=== PATIENT | female | born 1940 | race Caucasian/White ===

== ENCOUNTER 2019-06-12 09:00 | Inpatient (IN) | payer MEDICARE, OTHER ==
[2019-07-25] MEDS ORDERED: Buffered Lidocaine 1% SYRIN* 1 ML/SYRINGE INTRADERM ONE (12:14)
[2019-07-26] MEDS ORDERED: Gabapentin CAP(*) 300 MG PO ONE (06:00)
[2019-07-26] MEDS ORDERED: Acetaminophen IV 1GM/100ML * 1,000 MG/100 ML VIAL IVPB ONE (06:00)
[2019-07-26] MEDS ORDERED: Dexamethasone TAB* 4 MG PO ONE (06:00)
[2019-07-26] MEDS ORDERED: Lactated Ringers 1000 ML Bag* 1,000 ML IV SCH (06:00)
[2019-07-26] MEDS ORDERED: celeCOXIB CAP* 200 MG PO ONE (06:00)
[2019-07-26] MEDS ORDERED: Famotidine IV* 10 MG/ML 2 ML (20 mg) IV ONE (06:00)
--- OUTSIDE RECORDS SUMMARY | 2019-07-26 13:11 | XMS REPORT | Continuity of Care Document ---
:1940 External Reference #:[id number] Author Name Caridad Resendiz M.D. (transmitted by agent of provider Sara Valverde) Address [address] [place] [address] Care Team Providers Name Role Phone Archie Argueta III, MD - Internal Care Team Information Social Economist Medicine Victoriano Zhu MD - Surgery Care Team Information Social Economist [phone] [facility] - Sleep Disorder Care Team Information Social Economist Diagnostic Problems Active Problems Provider Date Benign essential hypertension Archie Argueta M.D. Onset: 03/01/2011 Impaired fasting glycaemia Archie Argueta M.D. Onset: 03/01/2011 History of malignant neoplasm of thyroid Archie Argueta M.D. Onset: 2010 Sleep disorder Nurse Visits - DR Argueta Onset: 03/01/2011 Mixed hyperlipidemia Archie Argueta M.D. Onset: 03/01/2011 Sleep apnea Archie Argueta M.D. Onset: 07/29/2011 Chest pain Archie Argueta M.D. Onset: 01/28/2012 Disorder of lipid metabolism Archie Argueta M.D. Onset: 12/26/2012 Type 2 diabetes mellitus Archie Argueta M.D. Onset: 07/10/2019 Localized, primary osteoarthritis Caridad Resendiz M.D. Onset: 09/14/2017 Pure hyperglyceridemia Archie Argueta M.D. Onset: 12/25/2015 Essential hypertension Archie Argueta M.D. Onset: 12/25/2015 Social History Type Date Description Comments Sex Unknown Tobacco Use Start: Unknown End: denies cigarette use Unknown ETOH Use Occasionally consumes alcohol Tobacco Use Start: Unknown End: Patient is a former Unknown smoker Tobacco Use Start: Unknown Started at 16 quit at 27, < 1/2 pk per day Smoking Status Reviewed: 07/16/19 Started at 16 quit at 27, < 1/2 pk per day Exercise Exercises regularly; less exercise lately Type/Frequency active around the house. with knee pain sx Allergies, Adverse Reactions, Alerts Description No Known Drug Allergies Medications Active Medications SIG Qnty Indications Ordering Date Provider Levothyroxine Sodium 1 by mouth every 90units Archie Zhu 12/15/2017 day Frances Argueta 100mcg Solution Rec Bystolic take 1 tablet by 180tabs I10 Archie Zhu 02/14/2013 20mg Tablets mouth once daily Frances Argueta Valsartan-Hydrochloro take 1 tablet by 90tabs Archie Zhu 11/21/2012 thiazide mouth once daily Frances Argueta 160-25mg Tablets Amlodipine Besylate take 1 tablet by 90tabs Archie Zhu 03/17/2012 mouth once daily Frances Argueta 10mg Tablets Potassium 2 tabs a day Unknown 99mg Tablets Centrum Silver 1 by mouth every Unknown Tablets day Triamcinolone Unknown Acetonide Meloxicam Unknown Ibuprofen as needed Unknown Aspirin as needed Unknown Tacrolimus use on effective Unknown 0.03% area 2x daily as Ointment needed Clobetasol Propionate Unknown 0.05% Ointment Medications Administered in Office Medication SIG Qnty Indications Ordering Provider Date Shingrix no bill inj-pt brought in Unknown 12/02/2018 Injection Shingrix no bill inj-pt brought in Unknown 09/15/2018 Injection Depomedrol 40MG Caridad Resendiz M.D. 09/14/2017 Injection Immunizations CPT Code Status Date Vaccine Reaction Lot # [id number] Given 03/02/2019 Tdap - shot tolerated well, [id number] Tetanus/Diptheria/Acellular no immediate reaction Pertussis 31476 Given 08/01/2018 Fluzone High Dose 17619 Given 07/05/2017 Influenza Virus Vaccine, Quadrivalent, Split, Preservative Free 53308 Given 10/06/2016 Fluzone High Dose 44166 Given 09/02/2015 Influenza Virus Vaccine, [id number] Quadrivalent, Split, Preservative Free 45119 Given 12/23/2014 Pneumococcal Conjugate [id number] Vaccine 13 Valent For Intramuscular Use 01373 Given 08/30/2014 Flu Vaccine Split Virus [id number] Preservative Free For Indiv 3Yr Older 46481 Given 10/09/2013 Flu Vaccine Split Virus [id number] Preservative Free For Indiv 3Yr Older Q2037 Given 07/29/2012 Fluvirin Im 3Yrs And Older [id number] Q2038 Given 09/09/2011 Fluzone Vaccine [id number] 71279 Given 08/28/2010 Influenza Virus 3Yrs & Over [id number] 08786 Given 10/03/2009 Influenza Virus Vaccine, [id number] 6P Pandemic Formulation 16841 Given 10/03/2009 Administration Swine Flu Shot 79750 Given 01/06/2009 Tetanus And Diptheria (Td) For Adult Use Preservative Free 81062 Given 11/21/2008 Zoster (Zostavax) 53038 Given 08/05/2008 Influenza Virus 3Yrs & Over 14644 Given 08/28/2007 Influenza Virus 3Yrs & Over 53442 02065 Given 06/29/2005 Pneumovax (History By Patient) 09665 Given 11/25/1998 Td (History By Patient) Vital Signs Date Vital Result Comment 07/16/2019 11:19am Height 67 inches 5'7" Weight 230.00 lb Heart Rate 60 /min BP Systolic 132 mmHg BP Diastolic 84 mmHg Respiratory Rate 18 /min Body Temperature 97.7 F Pain Level 0 BMI (Body Mass Index) 36.0 kg/m2 07/10/2019 4:01pm Height 67 inches 5'7" Weight 232.00 lb Heart Rate 59 /min BP Systolic Sitting 150 mmHg BP Diastolic Sitting 83 mmHg BMI (Body Mass Index) 36.3 kg/m2 Results Test Date Facility Test Result H/L Range Note Comp Metabolic 07/11/2019 [facility] Sodium 140 mmol/L Normal 135-[address] [place] [address] [phone] Potassium 3.6 mmol/L Normal 3.5-5.0 Chloride 101 mmol/L Normal 101-111 Co2 Carbon Dioxide 31 mmol/L Normal 22-32 Anion Gap 8 mmol/L Normal 2-11 Glucose 151 mg/dL High 70-100 Blood Urea Nitrogen 18 mg/dL Normal 6-24 Creatinine 0.70 mg/dL Normal 0.51-0.95 BUN/Creatinine Ratio 25.7 High 8-20 Calcium 8.9 mg/dL Normal 8.6-10.3 Total Protein 6.9 g/dL Normal 6.4-8.9 Albumin 4.2 g/dL Normal 3.2-5.2 Globulin 2.7 g/dL Normal 2-4 Albumin/Globulin Ratio 1.6 Normal 1-3 Total Bilirubin 0.50 mg/dL Normal 0.2-1.0 Alkaline Phosphatase 56 U/L Normal 34-104 Alt 24 U/L Normal 7-52 Ast 20 U/L Normal 13-39 Egfr Non- 80.9 >60 Egfr 97.9 >60 1 Laboratory test 07/11/2019 [facility] Hemoglobin A1c <pending> finding [address] (Glyco HGB) [place] [address] [phone] TSH (Thyroid Stim Horm) 6.69 mcIU/mL High 0.34-5.60 Free T4 (Free Thyroxine) 0.93 ng/dL Normal 0.61-1.12 CBC Auto 07/11/2019 [facility] White Blood 5.4 10^3/uL Normal 3.5-10.[address] [place] [address] [phone] Red Blood Count 4.72 10^6/uL Normal 3.70-4.87 Hemoglobin 14.4 g/dL Normal 12.0-16.0 Hematocrit 41 % Normal 35-47 Mean Corpuscular Volume 87 fL Normal 80-97 Mean Corpuscular Hemoglobin 31 pg Normal 27-31 Mean Corpuscular HGB Conc 35 g/dL Normal 31-36 Red Cell Distribution Width 14 % Normal 10-15 Platelet Count 151 10^3/uL Normal 150-450 Mean Platelet Volume 9.7 fL Normal 7.4-10.4 Abs Neutrophils 3.7 10^3/uL Normal 1.5-7.7 Abs Lymphocytes 1.0 10^3/uL Normal 1.0-4.8 Abs Monocytes 0.5 10^3/uL Normal 0-0.8 Abs Eosinophils 0.2 10^3/uL Normal 0-0.6 Abs Basophils 0.0 10^3/uL Normal 0-0.2 Abs Nucleated RBC 0.0 10^3/uL Granulocyte % 69.0 % Lymphocyte % 17.7 % Monocyte % 9.8 % Eosinophil % 3.1 % Basophil % 0.4 % Nucleated Red Blood Cells % 0.2 Urinalysis Profile 07/11/2019 [facility] Urine Color Yellow [address] [place] [address] [phone] Urine Appearance Clear Urine Specific [employer] 1.021 Normal 1.010-1.030 Urine pH 6.0 Normal 5-9 Urine Urobilinogen Negative Negative Urine Ketones Negative Negative Urine Protein Negative Negative Urine Leukocytes 2+ Abnormal Negative Urine Blood Negative Negative Urine Nitrite Negative Negative Urine Bilirubin Negative Negative Urine Glucose Negative Negative Urine White Blood Cell Absent Absent Urine Red Blood Cell Absent Absent Urine Bacteria Absent Absent Urine Culture And 07/11/2019 [facility] Urine Culture SEE RESULT [address] [place] [address] [phone] Urine Microalbumin 03/02/2019 [facility] Ur Microalbumin 85.4 mg /L [address] (mg/L) [place] [address] [phone] Urine Creatinine 99.78 mg/dL Urine Microalbumin/Creatinine 85.5 High <31 Comp Metabolic 02/22/2019 [facility] Sodium 141 mmol/L Normal 135-[address] [place] [address] [phone] Potassium 4.0 mmol/L Normal 3.5-5.0 Chloride 100 mmol/L Low 101-111 Co2 Carbon Dioxide 32 mmol/L Normal 22-32 Anion Gap 9 mmol/L Normal 2-11 Glucose 139 mg/dL High 70-100 Blood Urea Nitrogen 11 mg/dL Normal 6-24 Creatinine 0.68 mg/dL Normal 0.51-0.95 BUN/Creatinine Ratio 16.2 Normal 8-20 Calcium 9.4 mg/dL Normal 8.6-10.3 Total Protein 7.2 g/dL Normal 6.4-8.9 Albumin 4.4 g/dL Normal 3.2-5.2 Globulin 2.8 g/dL Normal 2-4 Albumin/Globulin Ratio 1.6 Normal 1-3 Total Bilirubin 0.50 mg/dL Normal 0.2-1.0 Alkaline Phosphatase 64 U/L Normal 34-104 Alt 24 U/L Normal 7-52 Ast 23 U/L Normal 13-39 Egfr Non- 83.7 >60 Egfr 101.3 >60 4 Lipid Profile 02/22/2019 [facility] Triglycerides 257 mg/dL 5 (Trig/Chol/HDL) [address] [place] [address] [phone] Cholesterol 155 mg/dL 6 HDL Cholesterol 45.7 mg/dL 7 LDL Cholesterol 58 mg/dL 8 Laboratory test 02/22/2019 [facility] Hemoglobin A1c 6.6 % High 4.0-5.[address] (Glyco HGB) [place] [address] [phone] TSH (Thyroid Stim Horm) 5.50 mcIU/mL Normal 0.34-5.60 10 Free T4 (Free Thyroxine) 0.96 ng/dL Normal 0.61-1.12 11 1 Because ethnic data is not always readily available, this report includes an eGFR for both -Americans and non- Americans. The National Kidney Disease Education Program (NKDEP) does not endorse the use of the MDRD equation for patients that are not between the ages of 18 and 70, are , have extremes of body size, muscle mass, or nutritional status, or are non- or non-. According to the National Kidney Foundation, irrespective of diagnosis, the stage of the disease is based on the level of kidney function: Stage Description GFR(mL/min/1.73 m(2)) 1 Kidney damage with normal or decreased GFR 90 2 Kidney damage with mild decrease in GFR 60-89 3 Moderate decrease in GFR 30-59 4 Severe decrease in GFR 15-29 5 Kidney failure <15 (or dialysis) 2 SEE RESULT BELOW Name: ISAIAS BRODERICK : [address]: Archie Argueta III, MD Acct: [id number] Unit: [id number] AGE: 78 Location: [facility] Re07/11/19 SEX: F Status: REG REF SPEC: [id number] MERRY: 07/11/[address]: Archie Argueta III, MD REQ: [id number] RECD: 07/11/19 STATUS: COMP _ [facility]: Urine Culture Procedure Result Reported Site Urine Culture Final 07/12/19- 1329 ML Organism 1 STREP GROUP B Baxter Count 50-75,000 (Many) CFU/ML Susceptibility testing of penicillins and other B-lactams approved by FDA for treatment of Streptococcus pyogenes (Group A Strep) and Streptococcus agalactiae (Group B Strep) is not necessary for clinical purposes and need not be done routinely, since as with vancomycin, resistant strains have not been recognized. (CLSI E690-M55;p.66) Positive isolates will be saved for one week. Please call the Microbiology Laboratory if further susceptibility testing is needed. * ML - Main Lab . END OF REPORT DEPARTMENT OF PATHOLOGY, [address] [place] [address] Ayad Kat M.D. Director [facility] # [id number] 3 [id number] 4 Because ethnic data is not always readily available, this report includes an eGFR for both -Americans and non- Americans. The National Kidney Disease Education Program (NKDEP) does not endorse the use of the MDRD equation for patients that are not between the ages of 18 and 70, are , have extremes of body size, muscle mass, or nutritional status, or are non- or non-. According to the National Kidney Foundation, irrespective of diagnosis, the stage of the disease is based on the level of kidney function: Stage Description GFR(mL/min/1.73 m(2)) 1 Kidney damage with normal or decreased GFR 90 2 Kidney damage with mild decrease in GFR 60-89 3 Moderate decrease in GFR 30-59 4 Severe decrease in GFR 15-29 5 Kidney failure <15 (or dialysis) 5 Desirable: <150 Borderline High: 150-199 High: 200-499 Very High: >500 6 Desirable: <200 Borderline High: 200-239 High: >239 7 Low: <40 Desirable: 40-60 High: >60 8 Desirable: <100 Near Optimal: 100-129 Borderline High: 130-159 High: 160-189 Very High: >189 9 Therapeutic target for the treatment of diabetes mellitus patients is <7% HBA1C, and in selective patients <6.0%. Please refer to [place] [employer] diabetic care guidelines for further information. 10 FASTING 11 FASTING Procedures Date Code Description Status 07/10/2019 97253 EKG Tracing & Interpretation Completed 04/17/2019 87309 Polysomnography Sleep Staging 4+ Parameters W/Cpap Completed 04/17/2019 995108399 Diabetic Retinal Eye Exam Completed 04/02/2019 [id number] Diabetic Foot Exam Completed 09/30/2017 [id number] Mammogram Completed 09/29/2016 [id number] Mammogram Completed 09/22/2015 [id number] Mammogram Completed 09/20/2014 [id number] Mammogram Completed 09/08/2012 [id number] Mammogram Completed 04/11/2012 [id number] Colonoscopy Completed 09/03/2010 [id number] Bone Mineral Density Test Completed 09/03/2010 [id number] Mammogram Completed 08/22/2009 [id number] Mammogram Completed 02/21/2007 [id number] Colonoscopy Completed Medical Devices Description No Information Available Encounters Type Date Location Provider Dx Diagnosis Office Visit 05/30/2019 Orthopedic Caridad Resendiz, M25.562 Pain in left knee 9:00a [facility] Daniels M25.462 Effusion, left knee M17.12 Unilateral primary osteoarthritis, left knee R21 Rash and other nonspecific skin eruption Office Visit 05/02/2019 [facility]ology And Neyda G47.33 Obstructive sleep 11:30a [facility] Barraza apnea (adult) Francie (pediatric) G47.61 Periodic limb movement disorder Z01.818 Encounter for other preprocedural examination Office Visit 03/30/2019 2:00p Orthopedic Services Caridad Resendiz, M25.562 Pain in left Of Deborah Daniels knee M25.462 Effusion, left knee M17.12 Unilateral primary osteoarthritis, left knee Office Visit 03/15/2019 7:00a [facility]ology [facility] Rupal G47.33 Obstructive sleep [facility] Marcelino apnea (adult) Optometric Technologist (pediatric) R53.83 Other fatigue Office Visit 03/02/2019 9:20a [facility] Internal Archie Zhu Z00.00 Encntr for Medicine - Evgeny Argueta M.D. general adult medical exam w/o abnormal findings I10 Essential (primary) hypertension E78.1 Pure hyperglyceridemia G47.30 Sleep apnea, unspecified Z85.850 Personal history of malignant neoplasm of thyroid E11.9 Type 2 diabetes mellitus without complications Z23 Encounter for immunization Assessments Date Code Description Provider 07/16/2019 M17.12 Unilateral primary osteoarthritis, left Caridad Resendiz M.D. knee 07/16/2019 M25.562 Pain in left knee Caridad Resendiz M.D. 07/16/2019 M25.462 Effusion, left knee Caridad Resendiz M.D. 07/10/2019 Z01.810 Encounter for preprocedural cardiovascular Archie Argueta M.D. examination 07/10/2019 M17.12 Unilateral primary osteoarthritis, left Archie Argueta M.D. knee 07/10/2019 I10 Essential (primary) hypertension Archie Argueta M.D. 07/10/2019 E11.9 Type 2 diabetes mellitus without Archie Argueta M.D. complications 07/10/2019 G47.30 Sleep apnea, unspecified Archie Argueta M.D. 07/10/2019 E78.1 Pure hyperglyceridemia Archie Argueta M.D. 07/10/2019 Z85.850 Personal history of malignant neoplasm of Archie Argueta M.D. thyroid 05/30/2019 M25.562 Pain in left knee Caridad Resendiz M.D. 05/30/2019 M25.462 Effusion, left knee Caridad Resendiz M.D. 05/30/2019 M17.12 Unilateral primary osteoarthritis, left Caridad Resendiz M.D. knee 05/30/2019 R21 Rash and other nonspecific skin eruption Caridad Resendiz M.D. 05/02/2019 G47.33 Obstructive sleep apnea (adult) (pediatric) Neyda Barraza NP 05/02/2019 G47.61 Periodic limb movement disorder Neyda Barraza NP 05/02/2019 Z01.818 Encounter for other preprocedural Neyda Barraza NP examination 04/17/2019 G47.33 Obstructive sleep apnea (adult) (pediatric) Rupal Benson MD 03/30/2019 M25.562 Pain in left knee Caridad Resendiz M.D. 03/30/2019 M25.462 Effusion, left knee Caridad Resendiz M.D. 03/30/2019 M17.12 Unilateral primary osteoarthritis, left Caridad Resendiz M.D. knee 03/15/2019 G47.33 Obstructive sleep apnea (adult) (pediatric) Rupal Benson MD 03/15/2019 R53.83 Other fatigue Rupal Benson MD 03/02/2019 Z00.00 Encounter for general adult medical Archie Argueta M.D. examination without abno 03/02/2019 I10 Essential (primary) hypertension Archie Argueta M.D. 03/02/2019 E78.1 Pure hyperglyceridemia Archie Argueta M.D. 03/02/2019 G47.30 Sleep apnea, unspecified Archie Argueta M.D. 03/02/2019 Z85.850 Personal history of malignant neoplasm of Archie Argueta M.D. thyroid 03/02/2019 E11.9 Type 2 diabetes mellitus without Archie Argueta M.D. complications 03/02/2019 Z23 Encounter for immunization Archie Argueta M.D. Plan of Treatment Future Appointment(s):08/08/2019 9:45 am - Caridad Resendiz M[facility]08/31/2019 9:30 am - Neyda Barraza NP at [facility]07/26/2019 4:30 pm - Caridad Resendiz M.D. at [facility]09/07/2019 10:40 am - Archie Argueta M.D. at [facility] Internal Medicine - [facility]07/16/2019 - Caridad Resendiz M.D.M17.12 Unilateral primary osteoarthritis, left kneeFollow up:Follow up: To the ORM25.562 Pain in left kneeNew Xrays:Knee 3 Views LT, Ordered: 07/16/19M25.462 Effusion, left knee Functional Status Description No Information Available Mental Status Description No Information Available Referrals Refer to Reason for Referral Status Appt Date [facility] Sleep Clinic sleep apnea, on CPAP Sent 03/15/2019 [address] [place] [place] [address] [phone]
--- OUTSIDE RECORDS SUMMARY | 2019-07-26 13:11 | XMS REPORT | Continuity of Care Document ---
:1940 External Reference #:[id number] Author Name Archie Argueta M.D. (transmitted by agent of provider Varsha Sr ) Address [address], [place] [address] Care Team Providers Name Role Phone Archie Argueta III, MD - Internal Care Team Information Supply Chain Manager Medicine Victoriano Zhu MD - Surgery Care Team Information Supply Chain Manager [phone] [facility] [place] [facility] - Sleep Disorder Care Team Information Supply Chain Manager Diagnostic Problems Active Problems Provider Date Benign [...] 1/2 pk per day Smoking Status Reviewed: 07/10/19 Started at 16 quit at 27, < 1/2 pk per day Exercise Exercises regularly; less exercise lately Type/Frequency active around the house. with knee pain sx Allergies, Adverse Reactions, Alerts Description No Known Drug Allergies Medications Active Medications SIG Qnty Indications Ordering Provider Date Levothyroxine Sodium 1 by mouth 90units Archie Argueta, 12/15/2017 every day M.D. 100mcg Solution Rec Bystolic take 1 tablet 180tabs I10 Archie Argueta, 02/14/2013 20mg Tablets by mouth once M.D. daily Valsartan-Hydrochlorot take 1 tablet 90tabs Archie Argueta, 11/21/2012 hiazide by mouth once M.D. 160-25mg Tablets daily Amlodipine Besylate take 1 tablet 90tabs Archie Argueta, 03/17/2012 10mg by mouth once M.D. Tablets daily Potassium 2 tabs a day Unknown 99mg Tablets Centrum Silver 1 by mouth Unknown Tablets every day Triamcinolone Unknown Acetonide Meloxicam Unknown Ibuprofen Unknown Aspirin Unknown Medications Administered in Office Medication SIG Qnty Indications Ordering Provider Date Shingrix no bill inj-pt brought in Unknown 12/02/2018 Injection Shingrix no bill inj-pt brought in Unknown 09/15/2018 Injection Depomedrol 40MG Caridad Resendiz M.D. 09/14/2017 Injection Immunizations CPT Code Status Date Vaccine Reaction Lot # [id number] Given 03/02/2019 Tdap - shot tolerated well, [id number] Tetanus/Diptheria/Acellular no immediate reaction Pertussis 50011 Given 08/01/2018 Fluzone High Dose 50289 Given 07/05/2017 Influenza Virus Vaccine, Quadrivalent, Split, Preservative Free 81485 Given 10/06/2016 Fluzone High Dose 52381 Given 09/02/2015 Influenza Virus Vaccine, [id number] Quadrivalent, Split, Preservative Free 07639 Given 12/23/2014 Pneumococcal Conjugate [id number] Vaccine 13 Valent For Intramuscular Use 52405 Given 08/30/2014 Flu Vaccine Split Virus [id number] Preservative Free For Indiv 3Yr Older 78636 Given 10/09/2013 Flu Vaccine Split Virus [id number] Preservative Free For Indiv 3Yr Older Q2037 Given 07/29/2012 Fluvirin Im 3Yrs And Older [id number] Q2038 Given 09/09/2011 Fluzone Vaccine [id number] 05550 Given 08/28/2010 Influenza Virus 3Yrs & Over [id number] 29921 Given 10/03/2009 Influenza Virus Vaccine, [id number] 6P Pandemic Formulation 63727 Given 10/03/2009 Administration Swine Flu Shot 66510 Given 01/06/2009 Tetanus And Diptheria (Td) For Adult Use Preservative Free 16187 Given 11/21/2008 Zoster (Zostavax) 76243 Given 08/05/2008 Influenza Virus 3Yrs & Over 55416 Given 08/28/2007 Influenza Virus 3Yrs & Over 64460 94465 Given 06/29/2005 Pneumovax (History By Patient) 36337 Given 11/25/1998 Td (History By Patient) Vital Signs Date Vital Result Comment 07/10/2019 4:01pm Height 67 inches 5'7" Weight 232.00 lb Heart Rate 59 /min BP Systolic Sitting 150 mmHg BP Diastolic Sitting 83 mmHg BMI (Body Mass Index) 36.3 kg/m2 05/30/2019 9:24am Height 67 inches 5'7" Weight 229.00 lb Heart Rate 61 /min BP Systolic 135 mmHg BP Diastolic 73 mmHg Body Temperature 97.6 F O2 % BldC Oximetry 94 % BMI (Body Mass Index) 35.9 kg/m2 Results Test Date Facility Test Result H/L Range Note Urine Microalbumin 03/02/2019 [facility] Ur Microalbumin 85.4 mg /L [address] (mg/L) [place] [address] [phone] Urine Creatinine 99.78 mg/dL Urine Microalbumin/Creatinine 85.5 High <31 Comp Metabolic 02/22/2019 [facility] Sodium 141 mmol/L Normal 135-[address] [place] [address] [phone] Potassium 4.0 mmol/L Normal 3.5-5.0 Chloride 100 [...] Egfr Non- 83.7 >60 Egfr 101.3 >60 2 Lipid Profile 02/22/2019 [facility] Triglycerides 257 mg/dL 3 (Trig/Chol/HDL) [address] [place] [address] [phone] Cholesterol 155 mg/dL 4 HDL Cholesterol 45.7 mg/dL 5 LDL Cholesterol 58 mg/dL 6 Laboratory test 02/22/2019 [facility] Hemoglobin A1c 6.6 % High 4.0-5.6 7 finding [address] [facility] (Glyco HGB) [place] [address] [phone] TSH (Thyroid Stim Horm) 5.50 mcIU/mL Normal 0.34-5.60 8 Free T4 (Free Thyroxine) 0.96 ng/dL Normal 0.61-1.12 9 1 [id number] 2 Because ethnic data is not always readily [...] 15-29 5 Kidney failure <15 (or dialysis) 3 Desirable: <150 Borderline High: 150-199 High: 200-499 Very High: >500 4 Desirable: <200 Borderline High: 200-239 High: >239 5 Low: <40 Desirable: 40-60 High: >60 6 Desirable: <100 Near Optimal: 100-129 Borderline High: 130-159 High: 160-189 Very High: >189 7 Therapeutic target for the treatment of diabetes mellitus patients is <7% HBA1C, and in selective patients <6.0%. Please refer to [place] [employer] diabetic care guidelines for further information. 8 FASTING 9 FASTING Procedures Date Code Description Status 04/17/2019 33671 Polysomnography Sleep Staging 4+ Parameters W/Cpap Completed 04/17/2019 [id number] Diabetic Retinal Eye Exam Completed 04/02/2019 [id number] Diabetic Foot Exam Completed 09/30/2017 [id number] Mammogram Completed 09/29/2016 [id number] Mammogram Completed 09/22/2015 [id number] Mammogram Completed 09/20/2014 [id number] Mammogram Completed 09/08/2012 [id number] Mammogram Completed 04/11/2012 [id number] Colonoscopy Completed 09/03/2010 [id number] Bone Mineral Density Test Completed 09/03/2010 [id number] Mammogram Completed 08/22/2009 [id number] Mammogram Completed 02/21/2007 [id number] Colonoscopy Completed Medical Devices Description No Information [...] [facility] apnea (adult) 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 M.D. 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 general adult medical exam w/o abnormal findings I10 Essential (primary) hypertension E78.1 Pure hyperglyceridemia G47.30 Sleep apnea, unspecified Z85.850 Personal history of malignant neoplasm of thyroid E11.9 Type 2 diabetes mellitus without complications Z23 Encounter for immunization Assessments Date Code Description Provider 07/10/2019 Z01.810 Encounter for preprocedural cardiovascular Archie [...] Archie Argueta M.D. Plan of Treatment Future Appointment(s):07/16/2019 11:15 am - Caridad Resendiz M.D. at [facility]07/26/2019 4:30 pm - Caridad Resendiz M.D. at [facility]08/15/2019 9:30 am - Neyda Barraza NP at [facility]09/07/2019 10:40 am - Archie Argueta M.D. at [facility] - [facility]07/10/2019 - Archie Argueta M.D.Z01.810 Encounter for preprocedural cardiovascular examinationNew Orders:EKG, Ordered: Comments:No contraindications to planned knee surgery. Preop labs ordered.M17.12 Unilateral primary osteoarthritis, left kneeComments:L TKA planned per chereJ36 Essential (primary) hypertensionComments:BP up today, but home BPs good. Continue Rx, home BP owzstmK39.9 Type 2 diabetes mellitus without complicationsComments:Diet Rx only; A1c 6.6 in February.G47.30 Sleep apnea, unspecifiedComments:On CPAPE78.1 Pure hyperglyceridemiaComments:Diet Rx only; TG 257 in FebruaryZ85.850 Personal history of malignant neoplasm of thyroidComments: On replacement Rx. TSH higher in February; recheck labs Functional Status Description No Information Available Mental Status Description No Information Available Referrals Refer to Reason for Referral Status Appt Date [facility] [place] [facility] sleep apnea, on CPAP Sent 03/15/2019 [address] [place] [id number] [phone]
--- OUTSIDE RECORDS SUMMARY | 2019-07-26 13:12 | XMS REPORT | Continuity of Care Document ---
:1940 External Reference #:[id number] Author Name Elizabeth Obrien Care Team Providers Name Role Phone Archie Argueta III, MD Primary Care Physician Unavailable Payers Date Identification Numbers Payment Provider Subscriber Effective: 2010 Policy Number: [id number] Medicare Isaias T Meggan PayID: [id number] [address] [place] [address] Effective: 2017 Policy Number: [id number] [facility] Isaias Villarrealleida Group Number: [id number] [address] PayID: [id number] [place] [address] PayID: [id number] Medicare D - Drug Plan Isaias Villarrealleida Advance Directives Type Date Description Status Comment Other Directive 12/30/2017 Health Care Proxy Current and Verified Problems Active Problems Provider Date Benign essential [...] lipid metabolism Archie Argueta M.D. Onset: 12/26/2012 Localized, primary osteoarthritis Caridad Resendiz M.D. Onset: 09/14/2017 Pure hyperglyceridemia Archie Argueta M.D. Onset: 12/25/2015 Essential hypertension Archie Argueta M.D. 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 Tobacco Use Start: Unknown End: denies cigarette use Unknown ETOH Use Occasionally consumes alcohol Tobacco Use Start: Unknown End: Patient is a former Unknown smoker Tobacco Use Start: Unknown Started at 16 quit at 27, < 1/2 pk per day Smoking Status Reviewed: 05/30/19 Started at 16 quit at 27, < [...] 10mg by mouth once M.D. Tablets daily Aspirin Unknown Ibuprofen Unknown Meloxicam Unknown Triamcinolone Unknown Acetonide Centrum Silver 1 by mouth Unknown Tablets every day Potassium 2 tabs a day Unknown 99mg Tablets History Medications Meloxicam take 1 pill a 30tabs Caridad Resendiz, 10/12/2017 - 7.5mg Tablets day by mouth M.D. 02/20/2018 Levothyroxine Sodium 1 by mouth 30tabs Archie Zhu 10/12/2017 - 112mcg every day Frances Argueta 12/15/2017 Tablets Meloxicam 1 by mouth 30tabs M25.562 Caridad Martín, 09/14/2017 - 15mg Tablets every day for M.DAissatou 08/21/2018 two week on and the two weeks off Levothyroxine Sodium 1 by mouth 90tabs Archie Zhu 08/18/2017 - 125mcg every day Frances Argueta 10/12/2017 Tablets Klor-Con M10 1 by mouth 14tabs Archie Zhu 02/16/2017 - 10Meq Tablets ER every day Frances Argueta 08/16/2017 Doxycycline Hyclate take both 2tabs S20.461 Archie Zhu 09/15/2015 - 100mg Tablets tablets Caroline Argueta M.D. 12/25/2015 together x1 Furosemide take 1 tablet 10tabs 782.3 Archie Zhu 03/20/2014 - 20mg Tablets by mouth every Frances Argueta 06/20/2014 morning Bystolic 1 po qd 30tabs 401.1 Archie Zhu 01/23/2013 - 10mg Tablets Frances Argueta 02/14/2013 Diovan HCT take 1 tablet 90tabs Archie Zhu 12/30/2011 - 160-25mg Tablets by mouth once Frances Argueta 11/21/2012 daily Amoxicillin 1 tid for 21 63caps Archie Zhu 08/17/2011 - 500mg Capsules days Frances Argueta 09/09/2011 Levothyroxine Sodium 1 po qd 30tabs Grant Burks MD 01/06/2010 - 125mcg 01/28/2012 Tablets Atenolol take 1 2 90tabs 401.1 Archie Zhu 01/06/2010 - 50mg Tablets tablet by mouth Frances Argueta 01/23/2013 once daily Ranitidine HCL 1 po qd 60caps Archie Zhu 01/06/2009 - 150mg Capsules Frances Argueta 08/09/2011 hs prn Amoxicillin 1 po bid 20tabs Archie Zhu 08/28/2007 - 500mg Tablets Frances Argueta 01/06/2009 Ibuprofen Unknown - 10/12/2017 Aspirin Unknown - 10/12/2017 Triamcinolone Acetonide apply thin film Unknown - 0.1% twice daily 10/12/2017 Cream Levothyroxine Sodium take 1 tablet 90tabs Archie E. - 137mcg by mouth daily Frances Argueta 08/18/2017 Tablets On An Empty Stomach Sulfamethoxazole/Trimethop Von, - rim DS MD Vikash 08/14/2017 800-160mg Tablets Phenazopyridine HCL Von, - 100mg Tablets MD Vikash 08/14/2017 Medroxyprogesterone 1 by mouth Unknown - Acetate every day 06/25/2015 10mg Tablets Norvasc 1 PO qd 90tabs Archie E. - 10mg Tablets Frances Argueta 03/17/2012 Diovan HCT 1 PO qd 90tabs Archie E. - 160/25mg Tablets Frances Argueta 12/30/2011 Atenolol 1 PO qd 90tabs Archie E. - 25mg Tablets Frances Argueta 01/06/2010 Medications Administered in Office Medication SIG Qnty Indications Ordering Provider Date Shingrix no bill inj-pt brought in Unknown 12/02/2018 Injection Shingrix no bill inj-pt brought in Unknown 09/15/2018 Injection Depomedrol 40MG Caridad Resendiz M.D. 09/14/2017 Injection Immunizations CPT Code Status Date Vaccine Reaction Lot # [id number] Given 03/02/2019 Tdap - shot tolerated well, [id number] Tetanus/Diptheria/Acellular no immediate reaction Pertussis 58946 Given 08/01/2018 Fluzone High Dose 77262 Given 07/05/2017 Influenza Virus Vaccine, Quadrivalent, Split, Preservative Free 02618 Given 10/06/2016 Fluzone High Dose 15644 Given 09/02/2015 Influenza Virus Vaccine, [id number] Quadrivalent, Split, Preservative Free 17285 Given 12/23/2014 Pneumococcal Conjugate [id number] Vaccine 13 Valent For Intramuscular Use 23906 Given 08/30/2014 Flu Vaccine Split Virus [id number] Preservative Free For Indiv 3Yr Older 93499 Given 10/09/2013 Flu Vaccine Split Virus [id number] Preservative Free For Indiv 3Yr Older Q2037 Given 07/29/2012 Fluvirin Im 3Yrs And Older [id number] Q2038 Given 09/09/2011 Fluzone Vaccine [id number] 99784 Given 08/28/2010 Influenza Virus 3Yrs & Over [id number] 75319 Given 10/03/2009 Influenza Virus Vaccine, [id number] 6P Pandemic Formulation 43843 Given 10/03/2009 Administration Swine Flu Shot 50579 Given 01/06/2009 Tetanus And Diptheria (Td) For Adult Use Preservative Free 80552 Given 11/21/2008 Zoster (Zostavax) 58165 Given 08/05/2008 Influenza Virus 3Yrs & Over 75974 Given 08/28/2007 Influenza Virus 3Yrs & Over [id number] 90575 Given 06/29/2005 Pneumovax (History By Patient) 49704 Given 11/25/1998 Td (History By Patient) Vital Signs Date Vital Result Comment 05/30/2019 9:24am Height 67 inches 5'7" Weight 229.00 lb Heart Rate 61 /min BP Systolic 135 mmHg BP Diastolic 73 mmHg Body Temperature 97.6 F O2 % BldC Oximetry 94 % BMI (Body Mass Index) 35.9 kg/m2 05/02/2019 11:38am Height 67 inches 5'7" Weight 228.00 lb Heart Rate 58 /min BP Systolic Sitting 140 mmHg Right arm large cuff BP Diastolic Sitting 82 mmHg Right arm large cuff Respiratory Rate 16 /min O2 % BldC Oximetry 95 % room air BMI (Body Mass Index) 35.7 kg/m2 03/30/2019 2:26pm Height 67 inches 5'7" Weight 230.00 lb BP Systolic 152 mmHg BP Diastolic 84 mmHg Body Temperature 98.2 F BMI (Body Mass Index) 36.0 kg/m2 03/15/2019 6:43am Height 67 inches 5'7" Weight 233.00 lb Heart Rate 60 /min BP Systolic Sitting 120 mmHg Lue large cuff BP Diastolic Sitting 72 mmHg Lue large cuff Respiratory Rate 12 /min O2 % BldC Oximetry 96 % BMI (Body Mass Index) 36.5 kg/m2 Neck Circumference in inches 14.25 03/02/2019 9:18am Height 67 inches 5'7" Weight 232.00 lb Heart Rate 63 /min BP Systolic 140 mmHg BP Diastolic 79 mmHg Body Temperature 96.9 F O2 % BldC Oximetry 94 % BMI (Body Mass Index) 36.3 kg/m2 08/22/2018 9:16am Height 67.5 inches 5'7.50" Weight 224.00 lb Heart Rate 59 /min BP Systolic Sitting 128 mmHg BP Diastolic Sitting 70 mmHg O2 % BldC Oximetry 97 % BMI (Body Mass Index) 34.6 kg/m2 02/20/2018 9:28am Height 67.5 inches 5'7.50" Weight 220.00 lb Heart Rate 64 /min BP Systolic Sitting 138 mmHg BP Diastolic Sitting 76 mmHg O2 % BldC Oximetry 97 % BMI (Body Mass Index) 33.9 kg/m2 10/12/2017 9:29am Height 67 inches 5'7" Weight 218.00 lb Heart Rate 62 /min BP Systolic Sitting 126 mmHg BP Diastolic Sitting 68 mmHg Body Temperature 97.2 F Pain Level 0 BMI (Body Mass Index) 34.1 kg/m2 09/14/2017 9:38am Height 67 inches 5'7" Weight 217.00 lb Heart Rate 62 /min BP Systolic 140 mmHg BP Diastolic 68 mmHg BMI (Body Mass Index) 34.0 kg/m2 08/18/2017 10:08am Height 67 inches 5'7" Weight 216.00 lb Heart Rate 56 /min BP Systolic Sitting 132 mmHg BP Diastolic Sitting 66 mmHg Body Temperature 97.7 F O2 % BldC Oximetry 97 % BMI (Body Mass Index) 33.8 kg/m2 02/16/2017 1:23pm Height 68 inches 5'8" Weight 219.38 lb Heart Rate 64 /min BP Systolic 126 mmHg BP Diastolic 76 mmHg Body Temperature 98.2 F O2 % BldC Oximetry 97 % BMI (Body Mass Index) 33.4 kg/m2 12/30/2016 9:15am Weight 219.00 lb Heart Rate 76 /min BP Systolic 125 mmHg home 12/24/16 BP Diastolic 66 mmHg home 12/24/16 BP Systolic Sitting 150 mmHg BP Diastolic Sitting 80 mmHg Respiratory Rate 15 /min Body Temperature 98.0 F O2 % BldC Oximetry 98 % 07/02/2016 9:42am Height 67 inches 5'7" Weight 221.38 lb Heart Rate 61 /min BP Systolic 130 mmHg BP Diastolic 70 mmHg Body Temperature 98.1 F O2 % BldC Oximetry 97 % BMI (Body Mass Index) 34.7 kg/m2 12/25/2015 9:05am Height 67 inches 5'7" Weight 228.00 lb Heart Rate 66 /min BP Systolic Sitting 144 mmHg BP Diastolic Sitting 72 mmHg Body Temperature 9.4 F BMI (Body Mass Index) 35.7 kg/m2 09/15/2015 10:53am Weight 226.00 lb Heart Rate 64 /min BP Systolic Sitting 151 mmHg BP Diastolic Sitting 79 mmHg Body Temperature 96.0 F 06/25/2015 8:59am Height 67.25 inches 5'7.25" Weight 221.50 lb Heart Rate 62 /min BP Systolic Sitting 124 mmHg BP Diastolic Sitting 70 mmHg O2 % BldC Oximetry 94 % BMI (Body Mass Index) 34.4 kg/m2 12/23/2014 9:08am Height 67.25 inches 5'7.25" Weight 218.75 lb Heart Rate 75 /min BP Systolic Sitting 136 mmHg BP Diastolic Sitting 64 mmHg O2 % BldC Oximetry 97 % BMI (Body Mass Index) 34.0 kg/m2 06/20/2014 10:04am Height 67.5 inches 5'7.50" Weight 222.75 lb Heart Rate 72 /min BP Systolic Sitting 138 mmHg BP Diastolic Sitting 68 mmHg Body Temperature 97.5 F BMI (Body Mass Index) 34.4 kg/m2 03/20/2014 2:59pm Weight 227.00 lb Heart Rate 66 /min BP Systolic Sitting 124 mmHg BP Diastolic Sitting 78 mmHg Body Temperature 96.8 F 12/17/2013 10:20am Height 67.5 inches 5'7.50" Weight 223.00 lb Heart Rate 68 /min BP Systolic Sitting 138 mmHg BP Diastolic Sitting 76 mmHg Body Temperature 97.8 F Pain Level bb BMI (Body Mass Index) 34.4 kg/m2 06/13/2013 10:57am Weight 216.75 lb Heart Rate 64 /min BP Systolic Sitting 142 mmHg BP Diastolic Sitting 82 mmHg 01/23/2013 11:32am Height 67.25 inches 5'7.25" Weight 217.00 lb Heart Rate 68 /min BP Systolic Sitting 160 mmHg BP Diastolic Sitting 78 mmHg BMI (Body Mass Index) 33.7 kg/m2 12/26/2012 3:54pm Height 67.5 inches 5'7.50" Weight 215.50 lb Heart Rate 88 /min BP Systolic Sitting 166 mmHg BP Diastolic Sitting 80 mmHg BMI (Body Mass Index) 33.3 kg/m2 12/12/2012 9:31am Height 67.5 inches 5'7.50" Weight 213.00 lb Heart Rate 72 /min BP Systolic Sitting 154 mmHg BP Diastolic Sitting 82 mmHg BMI (Body Mass Index) 32.9 kg/m2 01/28/2012 9:32am Height 67.25 inches 5'7.25" Weight 204.00 lb Heart Rate 64 /min BP Systolic Sitting 148 mmHg BP Diastolic Sitting 80 mmHg BMI (Body Mass Index) 31.7 kg/m2 09/09/2011 1:49pm Height 67.5 inches 5'7.50" Weight 201.00 lb Heart Rate 76 /min BP Systolic Sitting 150 mmHg BP Diastolic Sitting 78 mmHg BMI (Body Mass Index) 31.0 kg/m2 08/13/2011 9:22am Height 67.5 inches 5'7.50" Weight 207.75 lb Heart Rate 88 /min BP Systolic Sitting 134 mmHg BP Diastolic Sitting 72 mmHg BMI (Body Mass Index) 32.1 kg/m2 08/09/2011 9:36am Height 67.5 inches 5'7.50" Weight 205.50 lb Heart Rate 68 /min BP Systolic Sitting 130 mmHg BP Diastolic Sitting 72 mmHg Body Temperature 99.0 F BMI (Body Mass Index) 31.7 kg/m2 07/29/2011 1:49pm Height 67.5 inches 5'7.50" Weight 204.75 lb Heart Rate 76 /min BP Systolic Sitting 118 mmHg BP Diastolic Sitting 70 mmHg BMI (Body Mass Index) 31.6 kg/m2 01/07/2011 9:03am Weight 208.00 lb Heart Rate 70 /min BP Systolic Sitting 132 mmHg BP Diastolic Sitting 64 mmHg 07/09/2010 9:10am Weight 206.00 lb Heart Rate 63 /min BP Systolic Sitting 142 mmHg BP Diastolic Sitting 80 mmHg 03/10/2010 3:54pm Weight 203.00 lb Heart Rate 68 /min BP Systolic Sitting 158 mmHg BP Diastolic Sitting 80 mmHg 01/06/2010 10:07am Height 67.5 inches 5'7.50" Weight 201.00 lb Heart Rate 64 /min BP Systolic Sitting 130 mmHg BP Diastolic Sitting 70 mmHg BMI (Body Mass Index) 31.0 kg/m2 07/09/2009 9:25am Height 67.5 inches 5'7.50" Weight 201.00 lb Heart Rate 68 /min BP Systolic Sitting 142 mmHg BP Diastolic Sitting 82 mmHg BMI (Body Mass Index) 31.0 kg/m2 01/06/2009 10:23am Height 67.5 inches 5'7.50" Weight 197.00 lb Heart Rate 56 /min BP Systolic Sitting 144 mmHg BP Diastolic Sitting 82 mmHg BMI (Body Mass Index) 30.4 kg/m2 07/05/2008 9:01am Height 67.5 inches 5'7.50" Weight 193.00 lb Heart Rate 64 /min BP Systolic Sitting 120 mmHg BP Diastolic Sitting 70 mmHg BMI (Body Mass Index) 29.8 kg/m2 08/28/2007 9:55am Height 67.5 inches 5'7.50" Weight 195.00 lb Heart Rate 64 /min BP Systolic Sitting 118 mmHg BP Diastolic Sitting 70 mmHg Body Temperature 99.1 F BMI (Body Mass Index) 30.1 kg/m2 07/04/2007 9:31am Height 67.5 inches 5'7.50" Weight 194.50 lb Heart Rate 62 /min BP Systolic Sitting 130 mmHg BP Diastolic Sitting 82 mmHg BMI (Body Mass Index) 30.0 kg/m2 Results Test Date Facility Test Result H/L Range Note Urine Microalbumin 03/02/2019 [facility] Ur Microalbumin 85.4 mg /L [address] (mg/L) [place] [address] [phone] Urine Creatinine 99.78 mg/dL Urine Microalbumin/Creatinine 85.5 High <31 Comp Metabolic 02/22/2019 [facility] Sodium 141 mmol/L Normal 135-[address] [place] [address] [phone] Potassium 4.0 mmol/L Normal 3.5-5.0 Chloride 100 [...] Egfr 101.3 >60 2 Lipid Profile 02/22/2019 [facility] Triglycerides 257 mg/dL 3 (Trig/Chol/HDL) [place] [address] [phone] Cholesterol 155 mg/dL 4 HDL Cholesterol 45.7 mg/dL 5 LDL Cholesterol 58 mg/dL 6 Laboratory test 02/22/2019 [facility] Hemoglobin A1c 6.6 % High 4.0-5.6 7 finding (Glyco HGB) [place] [address] [phone] TSH (Thyroid Stim Horm) 5.50 mcIU/mL Normal 0.34-5.60 8 Free T4 (Free Thyroxine) 0.96 ng/dL Normal 0.61-1.12 9 Laboratory 03/14/2018 [facility] TSH (Thyroid 3.76 Normal 0.34 -5.60 test finding [facility] Stim Horm) mcIU/[place] [address] [phone] Free T4 (Free Thyroxine) 0.96 ng/dL Normal 0.61-1.12 Basic Metabolic 03/14/2018 [facility] Sodium 142 mmol/L Normal 139-145 [place] [address] [phone] Potassium 3.9 mmol/L Normal 3.5-5.0 Chloride 102 mmol/L Normal 101-111 Co2 Carbon Dioxide 33 mmol/L High 22-32 Anion Gap 7 mmol/L Normal 2-11 Glucose 118 mg/dL High 70-100 Blood Urea Nitrogen 16 mg/dL Normal 6-24 Creatinine 0.69 mg/dL Normal 0.51-0.95 BUN/Creatinine Ratio 23.2 High 8-20 Calcium 9.1 mg/dL Normal 8.6-10.3 Egfr Non- 82.5 >60 Egfr 106.1 >60 10 Lipid Profile 02/06/2018 [facility] Triglycerides 176 mg/dL 11 (Trig/Chol/HDL) [address] [place] [address] [phone] Cholesterol 161 mg/dL 12 HDL Cholesterol 52.6 mg/dL 13 LDL Cholesterol 73 mg/dL 14 Comp Metabolic 02/06/2018 [facility] Sodium 139 mmol/L Normal 139-[address] [place] [address] [phone] Potassium 3.4 mmol/L Low 3.5-5.0 Chloride 99 mmol/L Low 101-111 Co2 Carbon Dioxide 33 mmol/L High 22-32 Anion Gap 7 mmol/L Normal 2-11 Glucose 116 mg/dL High 70-100 Blood Urea Nitrogen 15 mg/dL Normal 6-24 Creatinine 0.71 mg/dL Normal 0.51-0.95 BUN/Creatinine Ratio 21.1 High 8-20 Calcium 9.3 mg/dL Normal 8.6-10.3 Total Protein 7.2 g/dL Normal 6.4-8.9 Albumin 4.3 g/dL Normal 3.2-5.2 Globulin 2.9 g/dL Normal 2-4 Albumin/Globulin Ratio 1.5 Normal 1-3 Total Bilirubin 0.50 mg/dL Normal 0.2-1.0 Alkaline Phosphatase 65 U/L Normal 34-104 Alt 21 U/L Normal 7-52 Ast 22 U/L Normal 13-39 Egfr Non- 79.8 >60 Egfr 102.7 >60 15 Laboratory test 12/06/2017 [facility] Free T4 (Free 1.24 High 0.61-1.[address] Thyroxine) ng/[place] [address] [phone] TSH (Thyroid Stim Horm) 0.97 mcIU/mL Normal 0.34-5.60 Laboratory test 10/04/2017 [facility] Hemoglobin A1c 6.0 % High 4.0-5.[address] (Glyco HGB) [place] [address] [phone] TSH (Thyroid Stim Horm) 0.27 mcIU/mL Low 0.34-5.60 Free T4 (Free Thyroxine) 1.35 ng/dL High 0.61-1.12 Basic Metabolic 10/04/2017 [facility] Sodium 139 mmol/L Normal 133-[address] [place] [address] [phone] Potassium 4.4 mmol/L Normal 3.5-5.0 Chloride 100 mmol/L Low 101-111 Co2 Carbon Dioxide 35 mmol/L High 22-32 Anion Gap 4 mmol/L Normal 2-11 Glucose 102 mg/dL High 70-100 Blood Urea Nitrogen 18 mg/dL Normal 6-24 Creatinine 0.75 mg/dL Normal 0.51-0.95 BUN/Creatinine Ratio 24.0 High 8-20 Calcium 9.3 mg/dL Normal 8.6-10.3 Egfr Non- 74.9 >60 Egfr 96.4 >60 17 Laboratory test 09/14/2017 [facility] Lyme Disease Negative Negative [address] [place] [address] [phone] Laboratory test 08/11/2017 [facility] TSH (Thyroid 0.29 mcIU/mL Low 0.34-5.[address] Stim Horm) [place] [address] [phone] Free T4 (Free Thyroxine) 1.29 ng/dL High 0.61-1.12 Basic Metabolic 08/11/2017 [facility] Sodium 138 mmol/L Normal 133-[address] [place], [place] [phone] Potassium 3.4 mmol/L Low 3.5-5.0 Chloride 100 mmol/L Low 101-111 Co2 Carbon Dioxide 33 mmol/L High 22-32 Anion Gap 5 mmol/L Normal 2-11 Glucose 179 mg/dL High 70-100 Blood Urea Nitrogen 16 mg/dL Normal 6-24 Creatinine 0.69 mg/dL Normal 0.51-0.95 BUN/Creatinine Ratio 23.2 High 8-20 Calcium 8.7 mg/dL Normal 8.6-10.3 Egfr Non- 82.7 Normal >60 Egfr 106.4 Normal >60 19 Urine Culture 02/11/2017 [facility] Urine Culture SEE 20, [address] [place] [address] BELOW [phone] Laboratory test 02/10/2017 [facility] TSH (Thyroid 0.[address] Stim Horm) mcIU/mL 4-5 [place] [address] .60 [phone] Thyroglobulin 02/10/2017 [facility] Thyroglobulin <1.8 Normal <4. Tumor Marker [address] Antibody IU/mL 0 [place] [address] [phone] Thyroglobulin Tumor Marker <0.1 ng/mL Normal 22 Thyroglobulin Interpretation See Comment Normal 23 Laboratory 02/10/2017 [facility] Hemoglobin A1c 5.8 % Normal Less 24 test finding [address] (Glyco HGB) than 6.0 [place] [address] [phone] Lipid Profile 12/24/2016 [facility] Triglycerides 189 Normal 25 (Trig/Chol/HDL [address] mg/dL ) [place] [address] [phone] Cholesterol 143 mg/dL Normal 26 HDL Cholesterol 44.0 mg/dL Normal 27 LDL Cholesterol 61 mg/dL Normal 28 Comp Metabolic 12/24/2016 [facility] Sodium 139 mmol/L Normal 133-[address] [place] [address] [phone] Potassium 3.3 mmol/L Low 3.5-5.0 Chloride 101 mmol/L Normal 101-111 Co2 Carbon Dioxide 34 mmol/L High 22-32 Anion Gap 4 mmol/L Normal 2-11 Glucose 115 mg/dL High 70-100 Blood Urea Nitrogen 12 mg/dL Normal 6-24 Creatinine 0.60 mg/dL Normal 0.51-0.95 BUN/Creatinine Ratio 20.0 Normal 8-20 Calcium 9.1 mg/dL Normal 8.6-10.3 Total Protein 7.0 g/dL Normal 6.4-8.9 Albumin 4.1 g/dL Normal 3.2-5.2 Globulin 2.9 g/dL Normal 2-4 Albumin/Globulin Ratio 1.4 Normal 1-3 Total Bilirubin 0.60 mg/dL Normal 0.2-1.0 Alkaline Phosphatase 54 U/L Normal 34-104 Alt 22 U/L Normal 7-52 Ast 19 U/L Normal 13-39 Egfr Non- 97.2 Normal >60 Egfr 125.0 Normal >60 29 Laboratory test 07/02/2016 [facility] Hemoglobin A1c 6.2 5-7 finding Laboratory test 02/02/2016 [facility] TSH (Thyroid Stim 0.39 Normal 0.34-5.[address] Horm) ?IU/mL 0 [place] [address] [phone] Thyroglobulin Tumor 02/02/2016 [facility] Thyroglobulin <1.8 Normal <4.0 Marker [facility] Antibody IU/[place] [address] [phone] Thyroglobulin Tumor Marker <0.1 ng/mL Normal 30 Thyroglobulin Interpretation See Comment Normal 31 Lipid Profile 12/22/2015 [facility] Triglycerides 213 mg/dL Normal 32 (Trig/Chol/HDL) [place] [address] [phone] Cholesterol 135 mg/dL Normal 33 HDL Cholesterol 46.3 mg/dL Normal 34 LDL Cholesterol 46 mg/dL Normal 35 Comp Metabolic 12/22/2015 [facility] Sodium 139 mmol/L Normal 133-145 Panel [address] [place] [address] [phone] Potassium 3.5 mmol/L Normal 3.5-5.0 Chloride 101 mmol/L Normal 101-111 Co2 Carbon Dioxide 32 mmol/L Normal 22-32 Anion Gap 6 mmol/L Normal 2-11 Glucose 127 mg/dL High 70-100 Blood Urea Nitrogen 13 mg/dL Normal 6-24 Creatinine 0.63 mg/dL Normal 0.51-0.95 BUN/Creatinine Ratio 20.6 High 8-20 Calcium 8.9 mg/dL Normal 8.6-10.3 Total Protein 6.8 g/dL Normal 6.4-8.9 Albumin 4.1 g/dL Normal 3.2-5.2 Globulin 2.7 g/dL Normal 2-4 Albumin/Globulin Ratio 1.5 Normal 1-3 Total Bilirubin 0.50 mg/dL Normal 0.2-1.0 Alkaline Phosphatase 60 U/L Normal 34-104 Alt 21 U/L Normal 7-52 Ast 19 U/L Normal 13-39 Egfr Non- 92.1 Normal >60 Egfr 118.5 Normal >60 36 Laboratory test 12/23/2014 [facility] Hemoglobin A1c 6.0 5-7 finding Lipid Profile 12/18/2014 [facility] Triglycerides 152 mg/dL Normal 37, 38 (Trig/Chol/HDL) [address] [place] [address] [phone] Cholesterol 122 mg/dL Normal 39 HDL Cholesterol 35.4 mg/dL Normal 40 LDL Cholesterol 56 mg/dL Normal 41 Comp Metabolic 12/18/2014 [facility] Sodium 138 mmol/L Normal 133-[address] [place] [address] [phone] Potassium 3.8 mmol/L Normal 3.5-5.0 Chloride 101 mmol/L Normal 101-111 Co2 Carbon Dioxide 31 mmol/L Normal 22-32 Anion Gap 6 mmol/L Normal 2-11 Glucose 120 mg/dL High 70-100 Blood Urea Nitrogen 11 mg/dL Normal 6-24 Creatinine 0.67 mg/dL Normal 0.51-0.95 BUN/Creatinine Ratio 16.4 Normal 8-20 Calcium 9.0 mg/dL Normal 8.6-10.3 Total Protein 7.0 g/dL Normal 6.4-8.9 Albumin 4.3 g/dL Normal 3.2-5.2 Globulin 2.7 g/dL Normal 2-4 Albumin/Globulin Ratio 1.6 Normal 1-3 Total Bilirubin 0.40 mg/dL Normal 0.2-1.0 Alkaline Phosphatase 56 U/L Normal 34-104 Alt 20 U/L Normal 7-52 Ast 19 U/L Normal 13-39 Egfr Non- 86.0 Normal >60 Egfr 110.7 Normal >60 42 Inr/Protime 03/20/2014 [facility] Inr 0.95 Normal 0.85-1.[address] [place] [address] [phone] Laboratory 03/20/2014 [facility] D Dimer 222 Normal Less Than [address] Quantitative ng/mL 230 [place] [address] [phone] Comp Metabolic 12/13/2013 [facility] Sodium 141 133-[address] mmol/[place] [address] [phone] Potassium 3.6 mmol/L Low 3.7-5.6 Chloride 102 mmol/L 101-111 Co2 Carbon Dioxide 32 mmol/L 22-32 Anion Gap 7 mmol/L 2-11 Glucose 104 mg/dL High 70-100 Blood Urea Nitrogen 14 mg/dL 6-24 Creatinine 0.58 mg/dL 0.51-0.95 BUN/Creatinine Ratio 24.1 High 8-20 Calcium 8.8 mg/dL 8.6-10.3 Total Protein 6.7 g/dL 6.4-8.9 Albumin 4.0 g/dL 3.2-5.2 Globulin 2.7 g/dL 2-4 Albumin/Globulin Ratio 1.5 1-3 Total Bilirubin 0.40 mg/dL 0.2-1.0 Alkaline Phosphatase 62 U/L 34-104 Alt 24 U/L 7-52 Ast 21 U/L 13-39 Egfr Non- 101.9 >60 Egfr 131.1 >60 44 Lipid Profile 12/13/2013 [facility] Triglycerides 242 mg/dL 45 (Trig/Chol/HDL) [address] [place] [address] [phone] Cholesterol 149 mg/dL 46 HDL Cholesterol 45.7 mg/dL 47 LDL Cholesterol 55 mg/dL 48 CBC Auto Diff 12/14/2012 [facility] White Blood 5.5 10^3/uL 4.8-10.[address] [place] [address] [phone] Red Blood Count 5.01 10^6/uL 4.0-5.4 Hemoglobin 15.0 g/dL 12.0-16.0 Hematocrit 44 % 35-47 Mean Corpuscular Volume 87 fL 80-97 Mean Corpuscular Hemoglobin 30 pg 27-31 Mean Corpuscular HGB Conc 34 g/dL 31-36 Red Cell Distribution Width 14 % 10.5-15 Platelet Count 157 10^3/uL 150-450 Mean Platelet Volume 10 um3 7.4-10.4 Abs Neutrophils 3.4 10^3/uL 1.5-7.7 Abs Lymphocytes 1.3 10^3/uL 1.0-4.8 Abs Monocytes 0.5 10^3/uL 0-0.8 Abs Eosinophils 0.3 10^3/uL 0-0.6 Abs Basophils 0.1 10^3/uL 0-0.2 Abs Nucleated RBC 0 10^3/uL Comp Metabolic Panel 12/14/2012 [facility] Sodium 142 mmol/L 133-[address] [place] [address] [phone] Potassium 3.5 mmol/L 3.5-5.0 Chloride 103 mmol/L 101-111 Co2 Carbon Dioxide 31.0 mmol/L 22-32 Anion Gap 8.0 mmol/L 2-11 Glucose 102 mg/dL High 70-100 Blood Urea Nitrogen 9 mg/dL 6-24 Creatinine 0.70 mg/dL 0.50-1.40 BUN/Creatinine Ratio 12.9 8-20 Calcium 9.3 mg/dL 8.1-9.9 Total Protein 7.0 g/dL 6.2-8.1 Albumin 4.1 g/dL 3.2-5.2 Globulin 2.9 g/dL 2-4 Albumin/Globulin Ratio 1.4 1-3 Total Bilirubin 0.5 mg/dL 0.4-1.5 Alkaline Phosphatase 74 U/L 30-110 Alt 32 U/L 14-54 Ast 26 U/L 12-42 Egfr Non- 82.3 >60 Egfr 105.8 >60 49 Lipid Profile 12/14/2012 [facility] Triglycerides 209 mg/dL High 40-200 (Trig/Chol/HDL) [address] [place] [address] [phone] Cholesterol 180 mg/dL Less than 200 HDL Cholesterol 53 mg/dL 40-60 50 Cholesterol/HDL Ratio 3.4 Average 1-4.44 LDL Cholesterol 85.2 mg/dL Less Than 100 51 Manual Differential 12/14/2012 [facility] Neutrophil % 62 % 38-[address] [place] [address] [phone] Lymphocytes % 24 % Low 25-47 Monocytes % 5 % 0-13 Eosinophils % 8 % High 0-6 Basophil % 1 % 0-2 RBC Morphology Normal Normal Laboratory test 08/14/2012 [facility] TSH (Thyroid 0.27 Low 0.34-5.[address] Stimulating MIU/[place] [address] Horm) [phone] Thyroglobulin 08/14/2012 [facility] Thyroglobulin 24 Abnormal <22 52 AB Screen [address] Antibody IU/[place] [address] [phone] Thyroglobulin Tumor Marker <0.1 ng/mL 53 Laboratory test 01/28/2012 [facility] Hemoglobin A1c 5.6 5-7 finding Laboratory test 09/09/2011 [facility] Hemoglobin A1c 5.9 5-7 finding Laboratory test 08/13/2011 [facility] Erythrocyte Sed 78 MM/HR High 0-[address] [place] [address] [phone] CBC Auto Diff 08/13/2011 [facility] White Blood Count 10.1 CUMM 4.8-10.8 [address] [place] [address] [phone] Red Cell Count 4.16 CUMM Low 4.2-5.4 Hemoglobin 12.6 g/dL 12.0-16.0 Hematocrit 37 % 35-47 Mean Corpuscular Volume 89 um3 79-97 Mean Corpuscular Hemoglob 30 pg 27-31 Mean Corpuscular HGB Cone 34 g/dL 32-36 Redcell Distribution WDTH 14 % 10.5-15 Platelet Count 266 CUMM 150-450 Mean Platelet Volume 9.1 um3 7.4-10.4 54 Manual 08/13/2011 [facility] Polysegmented 86 % High 38-83 Differential [address] [facility] [place] [place] [address] [phone] Lymphocyte 7 % Low 25-47 Monocyte 6 % 0-13 Basophil 1 % 0-2 Absolute Neutrophil Count 8.6 RBC Morphology NORMAL Laboratory test 08/13/2011 [facility] Janessa Screen NEGATIVE Negative 55 finding [address] [place] [address] [phone] Laboratory test 08/12/2011 [facility] Blood Culture NG5 56 finding [address] [place] [address] [phone] Lyme Disease Serology Positive Negative 57 Rheumatoid Factor < 15 IU/mL <15 58 Anti-Nuclear 08/12/2011 [facility] Antinuclear AB NEGATIVE Negative Antibody [address] [place] [address] [phone] Laboratory test 08/12/2011 [facility] Anaerobic NG5 59 finding 101 [facility] [place] [address] [phone] Lyme Disease AB 08/12/2011 [facility] Lyme Igg Negative Negative Conf. West.Blot [address] [facility] [employer] [place] [address] [phone] Lyme Igg Bands Detected p66,p41,p23 kDa () Lyme Igm Western Blot Positive Negative Lyme Igm Bands Detected p41,p39,p23 kDa () Lyme Disease Interpretation . () 60 Laboratory 08/11/2011 [facility] TSH 1.08 0.34-5.60 test finding [address] MIU/[place] [address] [phone] Thyroglobulin 08/11/2011 [facility] Thyroglobulin 64 IU/mL Abnormal <22 ,Tumor Marker [address] [place] [address] [phone] Thyroglobulin Tumor Marker <0.1 ng/mL () 61 Urine Culture & 08/09/2011 [facility] Urine Culture NF1 [address] [place] [address] [phone] Urinalysis 08/09/2011 [facility] Ua Color ORTEGA Yellow W/Microscopic [address] [place] [address] [phone] Appearance-Urine CLEAR Clear Specific [place]-Ur 1.021 1.010-1.030 Esterase-Urine 1+ Abnormal Negative Nitrite NEGATIVE Negative Bibszrkrpoiu-Kw-DZL NEGATIVE Negative Protein-Urine TRACE Abnormal Negative PH-Urine 7.0 5-9 Blood-Urine NEGATIVE Negative Ketones-Urine TRACE Abnormal Negative Bilirubin-Ur NEGATIVE Negative Glucose-Urine NEGATIVE Negative Hyaline Casts-Urine 2-4 0-2 WBC-Urine 2-5 0-5 RBC-Urine NONE SEEN 0-2 Epith Cells-Ur MANY None Bacteria-Urine TRACE None Laboratory test 08/07/2011 [facility] Erythrocyte Sed 76 MM/HR High 0-[address] [place] [address] [phone] CBC With Manual 08/07/2011 [facility] White Blood 7.4 CUMM 4.8-10.[address] [place] [address] [phone] Red Cell Count 4.66 CUMM 4.2-5.4 Hemoglobin 14.0 g/dL 12.0-16.0 Hematocrit 41 % 35-47 Mean Corpuscular Volume 88 um3 79-97 Mean Corpuscular Hemoglob 30 pg 27-31 Mean Corpuscular HGB Cone 34 g/dL 32-36 Redcell Distribution WDTH 14 % 10.5-15 Platelet Count (SEE NOTE) CUMM 150-450 63 Polysegmented Neutrophil 74 % 38-83 Band Neutrophil 18 % High 0-8 Lymphocyte 6 % Low 25-47 Monocyte 1 % 0-13 Eosinophil 1 % 0-6 Absolute Neutrophil Count 6.8 RBC Morphology NORMAL Platelet Evaluation CLUMPED Laboratory test 08/07/2011 [facility] C Reactive 9.3 mg/dL High Less Than finding [address] Protein 0.5 [place] [address] [phone] Comp Metabolic 08/07/2011 [facility] Sodium 136 mmol/L 135- 145 Panel 101 [place] [address] [phone] Potassium 4.4 mmol/L 3.5-5.0 Chloride 98 mmol/L Low 101-111 Co2 (Carbon Dioxide) 30.0 mmol/L 22-32 Anion Gap 8.0 mmol/L 2-11 64 Glucose 208 mg/dL High 70-100 BUN 8 mg/dL 6-24 Creatinine 0.8 mg/dL 0.50-1.40 One Over Creatinine 1.25 BUN/Creatinine Ratio 10.0 8-20 Calcium 8.7 mg/dL 8.1-9.9 Total Protein 7.1 GM/DL 6.2-8.1 Albumin 3.7 GM/DL 3.2-5.2 Globulin 3.4 GM/DL 2-4 Albumin/Globulin Ratio 1.1 1-3 Bilirubin Total 0.8 mg/dL 0.4-1.5 65 Alkaline Phosphatase 83 U/L 30-110 Alt (SGPT) 42 U/L 14-54 Ast (Sgot) 31 U/L 12-42 eGFR Non- 70.9 > 60 eGFR 91.2 > [address] Argueta's Lab 07/22/2011 [facility] TSH 0.52 MIU/ML 0.34- 5.60 Panel 101 [place] [address] [phone] Comp Metabolic 07/22/2011 [facility] Sodium 142 mmol/L 135- 145 Panel 101 [place] [address] [phone] Potassium 3.7 mmol/L 3.5-5.0 Chloride 103 mmol/L 101-111 Co2 (Carbon Dioxide) 30.0 mmol/L 22-32 Anion Gap 9.0 mmol/L 2-11 67 Glucose 92 mg/dL 70-100 BUN 7 mg/dL 6-24 Creatinine 0.6 mg/dL 0.50-1.40 One Over Creatinine 1.66 BUN/Creatinine Ratio 11.7 8-20 Calcium 8.5 mg/dL 8.1-9.9 Total Protein 6.7 GM/DL 6.2-8.1 Albumin 4.0 GM/DL 3.2-5.2 Globulin 2.7 GM/DL 2-4 Albumin/Globulin Ratio 1.5 1-3 Bilirubin Total 0.6 mg/dL 0.4-1.5 68 Alkaline Phosphatase 66 U/L 30-110 Alt (SGPT) 27 U/L 14-54 Ast (Sgot) 24 U/L 12-42 eGFR Non- 98.8 > 60 eGFR 127.1 > 60 69 Lipid Profile 07/22/2011 [facility] Triglyceride 200 mg/dL 40 -200 (Trig/Chol/HDL) [address] [place] [address] [phone] Cholesterol 163 mg/dL Less Than 200 70 High Density Lipoprotein 42 mg/dL 40-60 71 Cholesterol/HDL Ratio 3.88 AVERAGE 1-4.44 Low Density Lipoprotein 81 mg/dL Less Than 100 72 CBC Auto Diff 07/22/2011 [facility] White Blood 4.7 CUMM Low 4.8-10.[address] [place] [address] [phone] Red Cell Count 4.58 CUMM 4.2-5.4 Hemoglobin 14.3 g/dL 12.0-16.0 Hematocrit 40 % 35-47 Mean Corpuscular Volume 87 um3 79-97 Mean Corpuscular Hemoglob 31 pg 27-31 Mean Corpuscular HGB Cone 36 g/dL 32-36 Redcell Distribution WDTH 14 % 10.5-15 Platelet Count 145 CUMM Low 150-450 Mean Platelet Volume 10.6 um3 High 7.4-10.4 Gran % 64.7 % 38-83 Lymph % 20.8 % Low 25-47 Mononuclear % 10.0 % High 1-9 Eosinophil % 4.0 % 0-6 Basophil % 0.5 % 0-2 Abs Lymphs 1.0 1.0-4.8 Abs Mononuclear 0.5 0-0.8 Absolute Neutrophil Count 3.1 1.5-7.7 Abs Eosinophils 0.2 0-0.6 Abs Basophils 0 0-0.2 Laboratory 02/11/2011 [facility] TSH 0.15 Low 0.34-5.60 test finding [address] MIU/[place] [address] [phone] Thyroglobulin, 02/11/2011 [facility] Thyroglobulin <0.1 () 73 Tumor Marker [address] Tumor Marker ng/[place] [address] [phone] Laboratory 01/07/2011 [facility] Hemoglobin A1c 5.8 5-[address] Argueta's 07/06/2010 [facility] TSH 1.33 0.34-5.60 Lab Panel [address] MIU/[place] [address] [phone] Comp Metabolic 07/06/2010 [facility] Sodium 140 135-[address] mmol/[place] [address] [phone] Potassium 3.2 mmol/L Low 3.5-5.0 Chloride 102 mmol/L 101-111 Co2 (Carbon Dioxide) 29.0 mmol/L 22-32 Anion Gap 9.0 mmol/L 2-11 74 Glucose 103 mg/dL High 70-100 75 BUN 11 mg/dL 6-24 Creatinine 0.60 mg/dL 0.50-1.40 One Over Creatinine 1.60 BUN/Creatinine Ratio 18.3 8-20 Calcium 8.8 mg/dL 8.1-9.9 Total Protein 7.3 GM/DL 6.2-8.1 Albumin 4.3 GM/DL 3.2-5.2 Globulin 3.0 GM/DL 2-4 Albumin/Globulin Ratio 1.4 1-3 Bilirubin Total 0.7 mg/dL 0.4-1.5 76 Alkaline Phosphatase 58 U/L 30-110 Alt (SGPT) 31 U/L 14-54 Ast (Sgot) 29 U/L 12-42 eGFR Non- 105.4 > 60 eGFR 127.5 > 60 77 Laboratory test 07/06/2010 [facility] Ferritin 82 NG/ML 11.0- [address] [place] [address] [phone] Iron Total 98 g/dL 28-170 CBC With 07/06/2010 [facility] White Blood 5.1 CUMM 4.8-10.8 Electronic Diff [address] [place] [address] [phone] Red Cell Count 4.72 CUMM 4.2-5.4 Hemoglobin 14.2 g/dL 12.0-16.0 Hematocrit 41 % 35-47 Mean Corpuscular Volume 87 um3 79-97 Mean Corpuscular Hemoglob 30 pg 27-31 Mean Corpuscular HGB Cone 35 g/dL 32-36 Redcell Distribution WDTH 14 % 10.5-15 Platelet Count 164 CUMM 150-450 Mean Platelet Volume 8.5 um3 7.4-10.4 Gran % 65.5 % 38-83 Lymph % 20.8 % Low 25-47 Mononuclear % 9.0 % 1-9 Eosinophil % 4.3 % 0-6 Basophil % 0.4 % 0-2 Abs Lymphs 1.1 1.0-4.8 Abs Mononuclear 0.5 0-0.8 Absolute Neutrophil Count 3.3 1.5-7.7 Abs Eosinophils 0.2 0-0.6 Abs Basophils 0 0-0.2 Lipid Profile 07/06/2010 [facility] Triglyceride 194 mg/dL 40 -200 (Trig/Chol/HDL) [address] [place] [address] [phone] Cholesterol 171 mg/dL Less Than 200 78 High Density Lipoprotein 53 mg/dL 40-60 79 Cholesterol/HDL Ratio 3.23 AVERAGE 1-4.44 Low Density Lipoprotein 79 mg/dL Less Than 100 80 Iron & Iron Binding 04/01/2010 [facility] Iron Total 70 g/dL 28-[address] [place] [address] [phone] Unsaturated Iron Binding 273 g/dL Total Iron Binding Capacity 343 g/dL 250-450 % Iron Saturation 20 % 15-55 Laboratory test 04/01/2010 [facility] Ferritin 40 NG/ML 11.0- [address] [place] [address] [phone] Laboratory test 03/04/2010 [facility] TSH 1.66 0.34-5.[address] MIU/[place] [address] [phone] Laboratory test 12/15/2009 [facility] TSH 0.11 Low 0.34-5.[address] MIU/[place] [address] [phone] Laboratory test 11/04/2009 [facility] TSH 62.12 High 0.34- 5.[address] MIU/[place] [address] [phone] Laboratory test 08/30/2009 [facility] Calcium 9.3 mg/dL 8.1- 9.9 [address] [place] [address] [phone] Laboratory test 08/30/2009 [facility] Calcium 9.1 mg/dL 8.1- 9.9 [address] [place] [address] [phone] Laboratory test 08/29/2009 [facility] Calcium 8.3 mg/dL 8.1- 9.9 [address] [place] [address] [phone] MRSA/Vre Screen 08/29/2009 [facility] MRSA/Vre NFICU [address] [place] [address] [phone] CBC With 08/25/2009 [facility] White Blood 6.8 CUMM 4.8-10.8 85 Electronic Diff [address] [place] [address] [phone] Red Cell Count 4.91 CUMM 4.2-5.4 Hemoglobin 14.7 g/dL 12.0-16.0 Hematocrit 43 % 35-47 Mean Corpuscular Volume 87 um3 79-97 Mean Corpuscular Hemoglob 30 pg 27-31 Mean Corpuscular HGB Cone 35 g/dL 32-36 Redcell Distribution WDTH 14 % 10.5-15 Platelet Count 184 CUMM 150-450 Mean Platelet Volume 9.1 um3 7.4-10.4 Gran % 75.3 % 38-83 Lymph % 14.1 % Low 25-47 Mononuclear % 7.6 % 1-9 Eosinophil % 2.6 % 0-6 Basophil % 0.4 % 0-2 Abs Lymphs 1.0 1.0-4.8 Abs Mononuclear 0.5 0-0.8 Absolute Neutrophil Count 5.1 1.5-7.7 Abs Eosinophils 0.2 0-0.6 Abs Basophils 0 0-0.2 86 Basic Metabolic Panel 08/25/2009 [facility] Sodium 138 mmol/L 135-[address] [place] [address] [phone] Potassium 3.4 mmol/L Low 3.5-5.0 Chloride 100 mmol/L Low 101-111 Co2 (Carbon Dioxide) 30.0 mmol/L 22-32 Anion Gap 8.0 mmol/L 2-11 87 Glucose 100 mg/dL 70-100 88 BUN 14 mg/dL 6-24 Creatinine 0.60 mg/dL 0.50-1.40 One Over Creatinine 1.60 BUN/Creatinine Ratio 23.3 High 8-20 Calcium 8.9 mg/dL 8.1-9.9 89 eGFR Non- 105.4 > 60 eGFR 127.5 > 60 90 Laboratory test 08/25/2009 [facility] Phosphorus 4.6 mg/dL 2.4-4.[address] [place], [place] [address] [phone] Type And Screen 08/25/2009 [facility] Patient Blood O POSITIVE [address] [place] [address] [phone] Antibody Screen NEGATIVE Specimen Discard Date 08/08/2009 91 Cytology 08/21/2009 [facility] Cytology Non 92 Non-[employer] Tender [address] [employer] Tender <SEE NOTE> [place], [place] [id number] [phone] Cytology 08/21/2009 [facility] Cytology Non 93 Non-Link Wire [employer] Machine Tender [address] Link Wire [employer] Machine Tender <SEE NOTE> [place], [place] [id number] [phone] Laboratory 07/09/2009 [facility] TSH 2.67 MIU/ML 0.3 94 test finding [address] 4-5 [place] [address] .60 [phone] Lipid Profile 07/09/2009 [facility] Triglyceride 194 mg/dL 40 - (Trig/Chol/HDL [address] 200 ) [place], [place] [id number] [phone] Cholesterol 158 mg/dL Less Than 200 95 High Density Lipoprotein 42 mg/dL 40-60 96 Cholesterol/HDL Ratio 3.76 AVERAGE 1-4.44 Low Density Lipoprotein 77 mg/dL Less Than 100 97 Comp Metabolic Panel 07/09/2009 [facility] Sodium 140 mmol/L 135-[address] [place] [address] [phone] Potassium 4.2 mmol/L 3.5-5.0 Chloride 104 mmol/L 101-111 Co2 (Carbon Dioxide) 31.0 mmol/L 22-32 Anion Gap 5.0 mmol/L 2-11 98 Glucose 97 mg/dL 70-100 99 BUN 9 mg/dL 6-24 Creatinine 0.60 mg/dL 0.50-1.40 One Over Creatinine 1.60 BUN/Creatinine Ratio 15.0 8-20 Calcium 8.9 mg/dL 8.1-9.9 100 Total Protein 7.0 GM/DL 6.2-8.1 Albumin 3.9 GM/DL 3.2-5.2 Globulin 3.1 GM/DL 2-4 Albumin/Globulin Ratio 1.3 1-3 Bilirubin Total 0.5 mg/dL 0.4-1.5 101 Alkaline Phosphatase 67 U/L 30-110 Alt (SGPT) 27 U/L 14-54 Ast (Sgot) 26 U/L 12-42 eGFR Non- 105.7 > 60 eGFR 127.9 > 60 102 CBC With 07/09/2009 [facility] White Blood 4.5 CUMM Low 4.8- 10.8 Electronic Diff [address] [place] [address] [phone] Red Cell Count 4.63 CUMM 4.2-5.4 Hemoglobin 13.5 g/dL 12.0-16.0 Hematocrit 40 % 35-47 Mean Corpuscular Volume 87 um3 79-97 Mean Corpuscular Hemoglob 29 pg 27-31 Mean Corpuscular HGB Cone 34 g/dL 32-36 Redcell Distribution WDTH 14 % 10.5-15 Platelet Count 158 CUMM 150-450 Mean Platelet Volume 9.1 um3 7.4-10.4 Gran % 60.9 % 38-83 Lymph % 24.7 % Low 25-47 Mononuclear % 9.1 % High 1-9 Eosinophil % 5.0 % 0-6 Basophil % 0.3 % 0-2 Abs Lymphs 1.1 1.0-4.8 Abs Mononuclear 0.4 0-0.8 Absolute Neutrophil Count 2.7 1.5-7.7 Abs Eosinophils 0.2 0-0.6 Abs Basophils 0 0-0.2 Laboratory 07/01/2008 [facility] TSH 1.39 0.34-5.60 103 test finding [address] MIU/[place] [address] [phone] Lipid Profile 07/01/2008 [facility] Triglyceride 235 mg/dL High 40-200 (Trig/Chol/HDL [address] ) [place] [address] [phone] Cholesterol 192 mg/dL Less Than 200 104 High Density Lipoprotein 46 mg/dL 40-60 105 Cholesterol/HDL Ratio 4.17 AVERAGE 1-4.44 Low Density Lipoprotein 99 mg/dL Less Than 100 106 Comp Metabolic Panel 07/01/2008 [facility] Sodium 141 mmol/L 135-[address] [place] [address] [phone] Potassium 3.9 mmol/L 3.5-5.0 Chloride 103 mmol/L 101-111 Co2 (Carbon Dioxide) 33.0 mmol/L High 22-32 Anion Gap 5.0 mmol/L 2-11 107 Glucose 81 mg/dL 70-100 108 BUN 14 mg/dL 6-24 Creatinine 0.8 mg/dL 0.5-1.4 One Over Creatinine 1.25 BUN/Creatinine Ratio 17.5 8-20 Calcium 9.2 mg/dL 8.1-9.9 109 Total Protein 7.4 GM/DL 6.2-8.1 Albumin 4.1 GM/DL 3.2-5.2 Globulin 3.3 GM/DL 2-4 Albumin/Globulin Ratio 1.2 1-3 Bilirubin Total 0.7 mg/dL 0.4-1.5 Alkaline Phosphatase 71 U/L 30-110 Alt (SGPT) 25 U/L 14-54 Ast (Sgot) 25 U/L 12-42 CBC With 07/01/2008 [facility] White Blood 4.4 CUMM Low 4.8- 10.8 Electronic Diff [address] [place] [address] [phone] Red Cell Count 4.76 CUMM 4.2-5.4 Hemoglobin 14.0 g/dL 12.0-16.0 Hematocrit 41 % 35-47 Mean Corpuscular Volume 85 um3 79-97 Mean Corpuscular Hemoglob 29 pg 27-31 Mean Corpuscular HGB Cone 35 g/dL 32-36 Redcell Distribution WDTH 14 % 10.5-15 Platelet Count 160 CUMM 150-450 Mean Platelet Volume 9.5 um3 7.4-10.4 Gran % 62.2 % 38-83 Lymph % 24.6 % 20-45 Mononuclear % 9.3 % High 1-9 Eosinophil % 3.6 % 0-6 Basophil % 0.3 % 0-2 Abs Lymphs 1.1 1.0-4.8 Abs Mononuclear 0.4 0-0.8 Absolute Neutrophil Count 2.8 1.5-7.7 Abs Eosinophils 0.2 0-0.6 Abs Basophils 0 0-0.2 CBC W/ Electronic 07/03/2007 [facility] White Blood 4.5 CUMM Low 4.8-10.8 [address] [place] [address] [phone] Abs Basophils 0 0-0.2 Abs Eosinophils 0.2 0-0.6 Absolute Neutrophil Count 2.7 1.5-7.7 Abs Lymphs 1.2 1.0-4.8 Abs Mononuclear 0.4 0-0.8 Basophil % 0.3 % 0-2 Hematocrit 41 % 35-47 Hemoglobin 14.2 g/dL 12.0-16.0 Eosinophil % 5.0 % 0-6 Gran % 60.0 % 38-83 Lymph % 25.5 % 20-45 Mean Corpuscular HGB Cone 35 g/dL 32-36 Mean Corpuscular Hemoglob 30 pg 27-31 Mean Corpuscular Volume 86 um3 79-97 Mean Platelet Volume 9.4 um3 7.4-10.4 Mononuclear % 9.2 % High 1-9 Platelet Count 188 CUMM 150-450 Red Cell Count 4.80 CUMM 4.2-5.4 Redcell Distribution WDTH 14 % 10.5-15 Comp Metabolic Panel 07/03/2007 [facility] One Over Creatinine 1.[address] [place] [address] [phone] Anion Gap 6.0 mmol/L 2-11 111 Albumin/Globulin Ratio 1.2 1-3 Albumin 3.9 GM/DL 3.2-5.2 Alkaline Phosphatase 75 U/L 30-110 Alt (SGPT) 26 U/L 14-54 Ast (Sgot) 25 U/L 12-42 BUN 13 mg/dL 6-24 Calcium 8.9 mg/dL 8.7-10.2 Chloride 101 mmol/L 101-111 Co2 (Carbon Dioxide) 33.0 mmol/L High 22-32 Globulin 3.3 GM/DL 2-4 Glucose 94 mg/dL 70-105 Potassium 4.7 mmol/L 3.5-5.0 Sodium 140 mmol/L 135-145 Bilirubin Total 0.5 mg/dL 0.4-1.5 Total Protein 7.2 GM/DL 6.2-8.1 BUN/Creatinine Ratio 16.3 8-20 Creatinine 0.8 mg/dL 0.5-1.4 Lipid Profile 07/03/2007 [facility] Cholesterol/HDL 3.68 1- 4.44 (Trig/Chol/HDL) [address] [facility] [place] [address] [phone] Cholesterol 195 mg/dL Less Than 200 112 Triglyceride 203 mg/dL High 40-200 High Density Lipoprotein 53 mg/dL 40-60 Low Density Lipoprotein 101 mg/dL High Less Than 100 113 Laboratory test 07/03/2007 [facility] TSH 2.21 MIU/ML 0.34- 5.[address] [place] [address] [phone] Laboratory test 05/16/2007 [facility] Iron Total 63 g/dL 28 -170 finding [address] [place] [address] [phone] Ferritin 37 NG/ML 11.0-307 1 [id number] 2 Because ethnic data is not always [...] in selective patients <6.0%. Please refer to [place] [employer] diabetic care guidelines for further information. 8 FASTING 9 FASTING 10 Because ethnic data is not always readily [...] 15-29 5 Kidney failure <15 (or dialysis) 11 Desirable: <150 Borderline High: 150-199 High: 200-499 Very High: >500 12 Desirable: <200 Borderline High: 200-239 High: >239 13 Low: <40 Desirable: 40-60 High: >60 14 Desirable: <100 Near Optimal: 100-129 Borderline High: 130-159 High: 160-189 Very High: >189 15 Because ethnic data is not always readily [...] 15-29 5 Kidney failure <15 (or dialysis) 16 Therapeutic target for the treatment of diabetes mellitus patients is <7% HBA1C, and in selective patients <6.0%. Please refer to [place] [employer] diabetic care guidelines for further information. 17 Because ethnic data is not always readily [...] 15-29 5 Kidney failure <15 (or dialysis) 18 Serologic response to B. burgdorferi infection is not detected, but cannot rule out early infection during which low or undetectable antibody levels to B. burgdorferi may be present. If clinically indicated, a new serum specimen should be submitted in 7-14 days. Test Performed by: [facility] [address] [place] [address] 19 Because ethnic data is not always readily [...] 15-29 5 Kidney failure <15 (or dialysis) 20 [id number] 21 SEE RESULT BELOW Name: DAVIDLEIDAISAIAS : [address]: Vikash Longoria MD Acct: [id number] Unit: [id number] AGE: 76 Location: [facility] Re02/11/17 SEX: F Status: DEP ER SPEC: [id number] MERRY: 02/11/17-[address] [facility] [address]: Vikash Longoria MD REQ: [id number] RECD: 02/11/17 STATUS: PA HASSAN DR: Donna Saima Argueta III, MD _ SOURCE: URINE SPDESC: ORDERED: Urine Culture COMMENTS: [id number] Procedure Result Reported Site Urine Culture Final 02/13/17- 825 ML Organism 1 ESCHERICHIA COLI [place] Count >100,000 (Many) CFU/ML 1. ESCHERICHIA COLI M.I.C. RX --------- ------ Ampicillin >=32 R Cefazolin <=4 S Cefepime <=1 S Ceftriaxone <=1 S Ciprofloxacin <=0.25 S Gentamicin 2 S Levofloxacin <=0.12 S Meropenem <=0.25 S Nitrofurantoin <=16 S Tetracycline <=1 S Pipercillin/Tazobactam <=4 S Trimethoprim/Sulfamethoxazole <=20 S Amoxicillin/Clavulanic Acid 8 S Aztreonam <=1 S Contact the Microbiology Department for any additional antibiotic reporting. * [facility] - MAIN LAB ([facility]) . END OF REPORT * ML = Testing performed at Main Lab DEPARTMENT OF PATHOLOGY, [address] [place] [address] Ayad Kat M.D. Director BERNABE # [id number] 22 REFERENCE VALUE Athyrotic <0.1 Intact Thyroid <=33 23 Thyroglobulin (Tg) levels must be interpreted in the context of TSH levels, serial Tg measurements and radioiodine ablation status. Tg levels <0.1 ng/mL in athyrotic individuals on suppressive therapy indicate a minimal risk (<1-2%) of clinically detectable recurrent papillary/follicular thyroid cancer. ADDITIONAL INFORMATION PLEASE NOTE: Thyroglobulin flagging is based on athyrotic reference values. The thyroglobulin and thyroglobulin antibody testing methods are immunoenzymatic assays manufactured by [employer]. and performed on the [employer] DXI 800. Values obtained from different assay methods or kits may be different and cannot be used interchangeably. The results cannot be interpreted as absolute evidence for the presence or absence of malignant disease. Test Performed by: [address] [address] 24 Therapeutic target for the treatment of diabetes Mellitus patients is <7% HBA1C, and in selective patients <6.0%.Please refer to [place] [employer] Diabetic care guidelines for further information. 25 Desirable <150 Borderline high 150-199 High 200-499 Very High >500 26 Desirable <200 Borderline high 200-239 High >239 27 Low <40 Desirable: 40-60 High: >60 28 Desirable: <100 mg/dL Near Optimal: 100-129 mg/dL Borderline High: 130-159 mg/dL High: 160-189 mg/dL Very High: >189 mg/dL 29 Because ethnic data is not always readily [...] 15-29 5 Kidney failure <15 (or dialysis) 30 REFERENCE VALUE Athyrotic <0.1 Intact Thyroid <=33 31 Thyroglobulin (Tg) levels must be interpreted in the context of TSH levels, serial Tg measurements and radioiodine ablation status. Tg levels <0.1 ng/mL in athyrotic individuals on suppressive therapy indicate a minimal risk (<1-2%) of clinically detectable recurrent papillary/follicular thyroid cancer. ADDITIONAL INFORMATION PLEASE NOTE: Thyroglobulin flagging is based on athyrotic reference values. The thyroglobulin and thyroglobulin antibody testing methods are immunoenzymatic assays manufactured by [employer]. and performed on the [employer] DXI 800. Values obtained from different assay methods or kits may be different and cannot be used interchangeably. The results cannot be interpreted as absolute evidence for the presence or absence of malignant disease. Test Performed by: [place] [address] [employer] Machine [employer] Person: Alek Sanders II, M.D., Ph.D. 32 Desirable <150 Borderline high 150-199 High 200-499 Very High >500 33 Desirable <200 Borderline high 200-239 High >239 34 Low <40 Desirable: 40-60 High: >60 35 Desirable: <100 mg/dL Near Optimal: 100-129 mg/dL Borderline High: 130-159 mg/dL High: 160-189 mg/dL Very High: >189 mg/dL 36 Because ethnic data is not always readily [...] 15-29 5 Kidney failure <15 (or dialysis) 37 PT IS FASTING 38 Desirable <150 Borderline high 150-199 High 200-499 Very High >500 39 Desirable <200 Borderline high 200-239 High >239 40 Low <40 Desirable: 40-60 High: >60 41 Desirable <100 Near Optimal 100-129 Borderline high 130-159 High 160-189 Very High >189 42 Because ethnic data is not always readily [...] 15-29 5 Kidney failure <15 (or dialysis) 43 Please note: The following may produce a false positive D Dimer test: - Rheumatoid factor greater than 60 IU/ml - Plasma hemoglobin greater than 0.05 gm/dl - Bilirubin greater than 50 mg/dl - Lipids greater than 1000 mg/dl - FDP greater than 20 ug/ml 44 Because ethnic data is not always readily [...] 15-29 5 Kidney failure <15 (or dialysis) 45 Desirable <150 Borderline high 150-199 High 200-499 Very High >500 46 Desirable <200 Borderline high 200-239 High >239 47 Low <40 Desirable: 40-60 High: >60 48 Desirable <100 Near Optimal 100-129 Borderline high 130-159 High 160-189 Very High >189 49 Because ethnic data is not always readily [...] 15-29 5 Kidney failure <15 (or dialysis) 50 HDL Interpretation: Undesirable: High Risk: Less than 40 MG/DL Desirable: Low Risk: Greater than 60 MG/DL 51 LDL Interpretation: Low Risk Optimal Level: LDL Less than 100 MG/DL Near or Above Optimal: LDL 100-129 MG/DL Borderline High Risk: LDL 130-159 MG/DL High Risk: LDL 160-189 MG/DL Very High Risk: LDL Greater than 189 MG/DL 52 The thyroglobulin testing method is an immunoenzymatic assay manufactured by [employer] and performed on the Task Messenger DXI 800. The thyroglobulin antibody testing method is an electrochemiluminescence assay manufactured by [employer] and performed on the Fundera or Yari System. Values obtained from different assay methods or kits may be different and cannot be used interchangeably. The results cannot be interpreted as absolute evidence for the presence or absence of malignant disease. Specimens with thyroglobulin concentrations greater than 250,000 ng/mL may give falsely lower results. R 53 Quantitation of thyroglobulin may be unreliable due to the presence of anti-thyroglobulin antibodies. -- REFERENCE VALUE -- <=33 Athyrotic individuals normally have hTg values <=2. Test Performed by: [place] [address] [employer] Machine Key Person: John Anguiano III, M.D. R 54 Neutrophilia % Lymphopenia % 55 The above JANESSA screen is designed for the detection of antibodies to extractable nuclear antigen (JANESSA) in human serum. It is a combination test for the detection of antibodies to BILLET HEADER, Sm, SS-A (Ro), and SS-B (La) nuclear antigens. 56 NO GROWTH AFTER 5 DAYS 57 Not diagnostic. Supplemental testing ordered by reflex. Test Performed by: [facility] Dpt of Lab Med and Pathology [address] [place] [address] Slot Machine Key Person: John Anguiano III, M.D. 58 Test Performed by: [facility] Dpt of Lab Med and Pathology [address] [place] [address] Sl[employer] Machine Key Person: John Anguiano III, M.D. 59 NO GROWTH AFTER 5 DAYS 60 REPORTABLE DISEASE Consistent with early infection with Borrelia burgdorferi. A new serum specimen should be submitted in 14-21 days to demonstrate seroconversion of IgG. IgM blot criteria is of diagnostic utility only during the first 4 weeks of early Lyme disease. CDC criteria require >=5 bands for IgG or >=2 bands for IgM for the Western blot to be considered positive. Bands (e.g.,p41) may be detected in patients without Lyme disease, and patterns not meeting the CDC criteria should be interpreted with caution. Western blot should be ordered only on specimens that are positive or equivocal by a FDA-licensed Lyme disease antibody screening test (e.g., EIA). Test performed by immunoblot. Test Performed by: [facility] Dpt of Lab Med and Pathology [address] [place] [address] Slot Machine Key Person: John Anguiano III, M.D. 61 Quantitation of thyroglobulin may be unreliable due to the presence of anti-thyroglobulin antibodies. -- REFERENCE VALUE -- <=33 Athyrotic individuals normally have hTg values <=2. The thyroglobulin testing method is an immunoenzymatic assay manufactured by [employer] and performed on the Task Messenger DXI 800. The thyroglobulin antibody testing method is an electrochemiluminescence assay manufactured by [employer] and performed on the Modular or Yari System. Values obtained from different assay methods or kits may be different and cannot be used interchangeably. The results cannot be interpreted as absolute evidence for the presence or absence of malignant disease. Specimens with thyroglobulin concentrations greater than 250,000 ng/mL may give falsely lower results. Test Performed by: [facility] Dpt of Lab Med and Pathology [address] [place] [address] Sl[employer] Machine Key Person: John Anguiano III, M.D. 62 SPECIMEN CONTAINS NORMAL URETHRAL OR PERINEAL AMANDA AND DOES NOT SUGGEST URINARY TRACT INFECTION 63 PLATELETS CLUMPED. UNABLE TO PERFORM ACCURATE COUNT. 64 Anion gap measurement may be of limited value in the presence of any alkalosis, especially in a combined acid base disorder. . 65 A metabolite of Naproxen, O-desmethylnaproxen, has been shown to interfere with the Jendrassik-Veronica method for measuring total bilirubin. Samples from patients who have taken Naproxen have shown spurious elevation in total bilirubin levels. 66 Because ethnic data is not always readily [...] 15-29 5 Kidney failure <15 (or dialysis) 67 Anion gap measurement may be of limited value in the presence of any alkalosis, especially in a combined acid base disorder. . 68 A metabolite of Naproxen, O-desmethylnaproxen, has been shown to interfere with the Jendrassik-Veronica method for measuring total bilirubin. Samples from patients who have taken Naproxen have shown spurious elevation in total bilirubin levels. 69 Because ethnic data is not always readily [...] 15-29 5 Kidney failure <15 (or dialysis) 70 CHOLESTEROL INTERPRETATION: Desirable: Less than 200 MG/DL Borderline-High Risk: 200-239 MG/DL High-Risk: 240 MG/DL and over 71 HDL INTERPRETATION: Undesirable: High Risk: Less than 40 MG/DL Desirable: Low Risk: Greater than 60 MG/DL 72 LDL INTERPRETATION: Low Risk Optimal Level: LDL Less than 100 MG/DL Near or Above Optimal: LDL 100-129 MG/DL Borderline High Risk: LDL 130-159 MG/DL High Risk: LDL 160-189 MG/DL Very High Risk: LDL Greater than 189 MG/DL 73 Quantitation of thyroglobulin may be unreliable due to the presence of anti-thyroglobulin antibodies. -- REFERENCE VALUE -- <=33 Athyrotic individuals normally have hTg values <=2. The thyroglobulin testing method is an immunoenzymatic assay manufactured by [employer] and performed on the Task Messenger DXI 800. The thyroglobulin antibody testing method is an electrochemiluminescence assay manufactured by [employer] and performed on the Modular or Yari System. Values obtained from different assay methods or kits may be different and cannot be used interchangeably. The results cannot be interpreted as absolute evidence for the presence or absence of malignant disease. Specimens with thyroglobulin concentrations greater than 250,000 ng/mL may give falsely lower results. Test Performed by: [facility] Dpt of Lab Med and Pathology [address] [place] [address] Slot Machine Key Person: John Anguiano III, M.D. 74 Anion gap measurement may be of limited value in the presence of any alkalosis, especially in a combined acid base disorder. . 75 Note change in reference range as of 06/13/08. The change was based on recommendations from the [place] [employer]. 76 A metabolite of Naproxen, O-desmethylnaproxen, has been shown to interfere with the Jendrassik-[place] method for measuring total bilirubin. Samples from patients who have taken Naproxen have shown spurious elevation in total bilirubin levels. 77 Because ethnic data is not always readily [...] 15-29 5 Kidney failure <15 (or dialysis) 78 CHOLESTEROL INTERPRETATION: Desirable: Less than 200 MG/DL Borderline-High Risk: 200-239 MG/DL High-Risk: 240 MG/DL and over 79 HDL INTERPRETATION: Undesirable: High Risk: Less than 40 MG/DL Desirable: Low Risk: Greater than 60 MG/DL 80 LDL INTERPRETATION: Low Risk Optimal Level: LDL Less than 100 MG/DL Near or Above Optimal: LDL 100-129 MG/DL Borderline High Risk: LDL 130-159 MG/DL High Risk: LDL 160-189 MG/DL Very High Risk: LDL Greater than 189 MG/DL 81 Please note change in reference range effective 08 . 82 Please note change in reference range effective 08 . 83 Please note change in reference range effective 08 . 84 NO MRSA ISOLATED 85 SDS 08/29/09 86 Lymphopenia % 87 Anion gap measurement may be of limited value in the presence of any alkalosis, especially in a combined acid base disorder. . 88 Note change in reference range as of 06/13/08. The change was based on recommendations from the [place] [employer]. 89 Please note change in reference range effective 08 . 90 Because ethnic data is not always readily [...] 15-29 5 Kidney failure <15 (or dialysis) 91 PREADMISSION TESTING SAMPLES FOR BLOOD BANK WILL BE HELD FOR 14 DAYS FROM THE DATE OF COLLECTION *IF* THE FOLLOWING CRITERIA ARE MET: 1) THE PATIENT HAS *NOT* BEEN IN THE LAST 3 MONTHS. 2) THE PATIENT HAS *NOT* BEEN TRANSFUSED IN THE LAST 3 MONTHS. PREADMISSION TESTING SAMPLES WILL *NOT* BE HELD FOR 14 DAYS FROM PATIENTS WHO IN THE LAST 3 MONTHS: 1) HAVE BEEN 2) HAVE BEEN TRANSFUSED THESE PATIENTS *MUST* BE COLLECTED WITHIN 3 DAYS OF THE SURGERY DATE. 92 ---- RUN DATE: 08/21/09 [facility] NMI LIVE PAGE 1 RUN TIME: 1134 Specimen Inquiry RUN USER: INTERFACE -- Name: ISAIAS BRODERICK [facility]#: [id number] Status: REG REF Re08/21/09 Age/Sex: 69/F Unit#: [id number] Location: THYROID : 40 -- Specimen: [id number] SOUT Spec Date: 08/21/[address]: Carol Baker MD Spec Type: CYTOLOGY Received: 08/21/09 Copies to: Grant Argueta III, MD SOURCE FINE NEEDLE ASPIRATION Thyroid, right, ultrasound guided PATIENT INFORMATION ACTUAL COLLECTION DATE: 08/21/09 PATIENT HISTORY: Thyroid, right, 1.6 x 1.4 x 1.3 cm GROSS DESCRIPTION Ultrasound guided fine needle aspiration, passes-2 slides-1 Needle rinse in Cytolyt solution for cell block. 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 COMMENT The risk of malignancy in this setting is 10-30%. The differential diagnosis of Hurthle Cell Neoplasm includes Hurthle Adenoma, Well Differentiated Hurthle Cell Carcinoma, cellular nodule in hyperplasia, and Oncocytic Variant of Papillary Carcinoma. A cell block was prepared in the evaluation of this specimen. Initial evaluation performed by Courtney MOJICA([facility]) 08/21/09 Final Interpretation electronically signed by: AYAD KAT MD 08/21/09 11 34 -- -- DEPARTMENT OF PATHOLOGY, [address] [place] [address] [facility] Permit #[id number] Frances Reyes M.D. [employer] Hardware Outfitter Dir neha -- 93 ---- RUN DATE: 08/21/09 [facility] NMI LIVE PAGE 1 RUN TIME: 1149 Specimen Inquiry RUN USER: INTERFACE -- Name: ISAIAS BROEDRICK [facility]#: [id number] Status: REG REF Re08/21/09 Age/Sex: 69/F Unit#: [id number] Location: THYROID : 40 -- Specimen: [id number] SOUT Spec Date: 08/21/[address]: Carol Baker MD Spec Type: CYTOLOGY Received: 08/21/09 Copies to: Grant Argueta III, MD SOURCE FINE NEEDLE ASPIRATION Thyroid, left, ultrasound guided PATIENT INFORMATION ACTUAL COLLECTION DATE: 08/21/09 PATIENT HISTORY: Thyroid, left inferior, 1.3 x 0.8 x 1.2 cm GROSS DESCRIPTION Ultrasound guided fine needle aspiration, passes-1 slides-2 Needle rinse in Cytolyt solution for cell block. 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 COMMENT The aspirate smears are abundantly cellular demonstrating classic diagnostic features of papillary carcinoma of thyroid including abundant cellularity, three dimensional structures with both avascular and vascular papillary structures, cells demonstrating both very find chromatin with nuclear grooves and rare intranuclear inclusions as well as metaplastic waxy cytoplasm. Appropriate surgical intervention should be considered. A cell block was prepared in the evaluation of this specimen. Initial evaluation performed by Courtney MOJICA([facility]) 08/21/09 Final Interpretation electronically signed by: AYAD KAT MD 08/21/09 11 49 -- DEPARTMENT OF PATHOLOGY, [address] [place] [address] [facility] Permit #[id number] Ayad Kat M.D. Director Cynthia Cifuentes M.D. [employer] Hardware Outfitter Dir neha -- 94 FASTING 95 CHOLESTEROL INTERPRETATION: Desirable: Less than 200 MG/DL Borderline-High Risk: 200-239 MG/DL High-Risk: 240 MG/DL and over 96 HDL INTERPRETATION: Undesirable: High Risk: Less than 40 MG/DL Desirable: Low Risk: Greater than 60 MG/DL 97 LDL INTERPRETATION: Low Risk Optimal Level: LDL Less than 100 MG/DL Near or Above Optimal: LDL 100-129 MG/DL Borderline High Risk: LDL 130-159 MG/DL High Risk: LDL 160-189 MG/DL Very High Risk: LDL Greater than 189 MG/DL 98 Anion gap measurement may be of limited value in the presence of any alkalosis, especially in a combined acid base disorder. . 99 Note change in reference range as of 06/13/08. The change was based on recommendations from the [place] [employer]. 100 Please note change in reference range effective 08 . 101 A metabolite of Naproxen, O-desmethylnaproxen, has been shown to interfere with the J[place]-Veronica method for measuring total bilirubin. Samples from patients who have taken Naproxen have shown spurious elevation in total bilirubin levels. 102 Because ethnic data is not always readily [...] 15-29 5 Kidney failure <15 (or dialysis) 103 FASTING PATIENT MAY HAVE RESULTS PER DOCTOR'S AUTHORIZATION. Questions regarding this report should be directed to your doctor. 104 CHOLESTEROL INTERPRETATION: Desirable: Less than 200 MG/DL Borderline-High Risk: 200-239 MG/DL High-Risk: 240 MG/DL and over 105 HDL INTERPRETATION: Undesirable: High Risk: Less than 40 MG/DL Desirable: Low Risk: Greater than 60 MG/DL 106 LDL INTERPRETATION: Low Risk Optimal Level: LDL Less than 100 MG/DL Near or Above Optimal: LDL 100-129 MG/DL Borderline High Risk: LDL 130-159 MG/DL High Risk: LDL 160-189 MG/DL Very High Risk: LDL Greater than 189 MG/DL 107 Anion gap measurement may be of limited value in the presence of any alkalosis, especially in a combined acid base disorder. . 108 Note change in reference range as of 06/13/08. The change was based on recommendations from the [place] [employer]. 109 Please note change in reference range effective 08 . 110 PATIENT MAY HAVE RESULTS PER DOCTOR'S AUTHORIZATION. Questions regarding this report should be directed to your doctor. 111 Anion gap measurement may be of limited value in the presence of any alkalosis, especially in a combined acid base disorder. . 112 Classification: Desirable . 113 CALCULATED LDL APPROXIMATES THE VALUE OF A DIRECT LDL MEASUREMENT. Classification: Near or above optimal . Procedures Date Code Description Status 04/17/2019 26789 Polysomnography Sleep Staging 4+ Parameters W/Cpap Completed 04/17/2019 828489485 Diabetic Retinal Eye Exam Completed 04/02/2019 [id number] Diabetic Foot Exam Completed 09/30/2017 [id number] Mammogram Completed 09/14/2017 48102 Inject/Drain Joint/Bursa Major W/O US Completed 09/29/2016 [id number] Mammogram Completed 09/22/2015 [id number] Mammogram Completed 09/20/2014 [id number] Mammogram Completed 09/08/2012 [id number] Mammogram Completed 04/11/2012 [id number] Colonoscopy Completed 02/01/2012 41974 Treadmill Interp/Report Only Completed 02/01/2012 35110 Stress Test Supervsn W/Out I/R Completed 01/28/2012 23294 EKG Tracing & Interpretation Completed 09/03/2010 [id number] Bone Mineral Density Test Completed 09/03/2010 [id number] Mammogram Completed 07/09/2010 06862 Screening Vision Test Completed 08/25/2009 63419 EKG, Interpretation Only Completed 08/22/2009 [id number] Mammogram Completed 07/09/2009 90222 EKG Tracing & Interpretation Completed 07/05/2008 15731 EKG Tracing & Interpretation Completed 07/05/2008 82753 EKG Tracing & Interpretation Completed 07/04/2007 66379 EKG Tracing & Interpretation Completed 02/21/2007 [id number] Colonoscopy Completed Encounters Type Date Location Provider Dx Diagnosis Office Visit 05/02/2019 Pulmonology Siri Faye G47.33 Obstructive sleep 11:30a [facility] apnea (adult) [facility] (pediatric) G47.61 Periodic limb movement disorder Z01.818 Encounter for other preprocedural examination Office Visit 03/30/2019 2:00p [facility] Caridad Resendiz M25.562 Pain in left Of C.M.A. M.D. knee M25.462 Effusion, left knee M17.12 Unilateral primary osteoarthritis, left knee Office Visit 03/15/2019 7:00a Pulmonology Siri Goldsmith G47.33 Obstructive sleep [facility] Marcelino apnea (adult) [facility] (pediatric) R53.83 Other fatigue Office Visit 03/02/2019 9:20a [facility] Internal Archie Zhu Z00.00 [facility] - Evgeny Argueta M.D. general adult medical exam w/o abnormal findings I10 Essential (primary) hypertension E78.1 Pure hyperglyceridemia G47.30 Sleep apnea, unspecified Z85.850 Personal history of malignant neoplasm of thyroid E11.9 Type 2 diabetes mellitus without complications Z23 Encounter for immunization Office Visit 08/22/2018 Zaria [facility] Internal Archie EAissatou I10 Essential 9:00a Heidy Argueta M.D. (primary) hypertension E78.1 Pure hyperglyceridemia R73.01 Impaired fasting glucose G47.30 Sleep apnea, unspecified Z85.850 Personal history of malignant neoplasm of thyroid Office Visit 10/12/2017 Orthopedic Caridad M17.12 Unilateral primary 9:15a Services Of Frances Resendiz osteoarthritis, left C.M.A. knee M25.562 Pain in left knee Office Visit 09/14/2017 9:30a Orthopedic Services Caridad Resendiz M25.562 Pain in left Of C.M.A. M.D. knee M25.462 Effusion, left knee M17.12 Unilateral primary osteoarthritis, left knee Office Visit 08/18/2017 Zaria [facility] Internal Archie EAissatou I10 Essential 10:00a Heidy Argueta M.D. (primary) hypertension R73.01 Impaired fasting glucose Z85.850 Personal history of malignant neoplasm of thyroid Office Visit 12/30/2016 Zaria [facility] Internal Archie EAissatou I10 Essential 9:00a Heidy Argueta M.D. (primary) hypertension R73.01 Impaired fasting glucose G47.30 Sleep apnea, unspecified Z85.850 Personal history of malignant neoplasm of thyroid Office Visit 07/02/2016 Zaria [facility] Internal Archie EAissatou I10 Essential 9:40a Heidy Argueta M.D. (primary) hypertension R73.01 Impaired fasting glucose G47.30 Sleep apnea, unspecified E78.1 Pure hyperglyceridemia Office Visit 12/25/2015 9:00a [facility] Internal Archie EAissatou Z00.00 [facility] Yulia Argueta M.D. general adult medical exam w/o abnormal findings I10 Essential (primary) hypertension R73.01 Impaired fasting glucose G47.30 Sleep apnea, unspecified Z85.850 Personal history of malignant neoplasm of thyroid E78.1 Pure hyperglyceridemia Office Visit 09/15/2015 10:40a [facility] Internal Archie Zhu S20.461A Insect bite Medicine Yulia Argueta M.[facility]. [facility] wall of thorax, init Office Visit 06/25/2015 9:00a [facility] Internal Archie Zhu 401.1 Hypertension Sandra Argueta M.D. Ccmob 790.21 Impaired Fasting Glucose 780.57 Unspecified Sleep Apnea Office Visit 06/20/2014 10:00a [facility] Internal Archie Zhu 401.1 Hypertension Sandra Argueta M.D. Ccmob 780.57 Unspecified Sleep Apnea 790.21 Impaired Fasting Glucose 627.1 Postmenopausal Bleeding Office Visit 03/20/2014 2:40p [facility] Internal Archie Zhu 782.3 Edema Urmila [facility] 06/13/2013 10:40a [facility] Internal Archie Zhu 401.1 Hypertension Sandra Argueta M.D. Ccmob 780.57 Unspecified Sleep Apnea Office Visit 01/23/2013 11:20a [facility] Internal Archie Zhu 401.1 Hypertension Sandra Argueta M.D. Ccmob 780.57 Unspecified Sleep Apnea Office Visit 12/12/2012 9:20a [facility] Internal Archie Zhu 719.44 Pain Joint Medicine - Evgeny Argueta M.D. Hand 401.1 Hypertension Benign Office Visit 02/01/2012 8:30a [facility] William Reynolds 401.1 Hypertension Frances Caicedo Benign 780.57 Unspecified Sleep Apnea 790.21 Impaired Fasting Glucose 786.50 Pain Chest Unspec Office Visit 01/28/2012 9:40a [facility] Internal Archie Zhu 401.1 Hypertension Sandra Argueta M.D. Ccmob 780.57 Unspecified Sleep Apnea 790.21 Impaired Fasting Glucose 786.50 Pain Chest Unspec Office Visit 09/09/2011 1:40p DO Not Use Francie Zhu 401.1 Hypertension Benign AT Paul Argueta M.D. 780.57 Unspecified Sleep Apnea 790.21 Impaired Fasting Glucose V04.81 Need For Prophylactic Vaccination & Inoculation/Influenza Office Visit 08/13/2011 9:00a DO Not Use Francie Rojas 447.6 Arteritis Unspec AT Paul Martinez M.D.,FACP Office Visit 08/09/2011 9:40a DO Not Use Lunch Truck Operator Kina Middleton, 782.1 Rash & Other AT Paul Daniels [employer] Skin Eruption 780.61 Fever Presenting W/Conditions Classified Elsewhere Office Visit 07/29/2011 1:40p DO Not Use [employer]unch Truck Operator Archie E. V70.0 Examination AT Paul Argueta M.D. General Medical Routine AT [facility] 401.1 Hypertension Benign 780.57 Unspecified Sleep Apnea 790.21 Impaired Fasting Glucose V10.87 History Personal Malignant Neoplasm Thyroid Office Visit 01/07/2011 9:00a DO Not Use Lunch Truck Operator Archie E. 401.1 Hypertension Benign AT Paul Argueta M.D. 790.21 Impaired Fasting Glucose 780.57 Unspecified Sleep Apnea V10.87 History Personal Malignant Neoplasm Thyroid Office Visit 07/09/2010 9:00a DO Not Use [employer]unch Truck Operator Archie E. 401.1 Hypertension Benign AT Paul Argueta M.D. 729.5 Pain In Limb 780.57 Unspecified Sleep Apnea 790.21 Impaired Fasting Glucose V10.87 History Personal Malignant Neoplasm Thyroid Office Visit 03/10/2010 3:40p DO Not Use Lunch Truck Operator AT Archie Argueta, 729.5 Pain In Limb [facility] Frances 401.1 Hypertension Benign Office Visit 01/06/2010 10:00a DO Not Use [employer]unch [employer] Operator Archie E. 401.1 Hypertension Benign AT Paul Argueta M.D. 780.57 Unspecified Sleep Apnea V10.87 History Personal Malignant Neoplasm Thyroid Office Visit 07/09/2009 9:00a [facility] Archie E. 401.1 Hypertension Benign Assoc AT Frances Argueta [facility] 780.57 Unspecified Sleep Apnea Office Visit 01/06/2009 10:15a [facility] Archie E. 401.1 Hypertension Benign Assoc AT Frances Argueta [facility] V06.5 Tetanus Diphtheria (DT) Office Visit 07/05/2008 9:00a [facility] Archie E. V70.0 Examination Assoc AT Frances Argueta [facility] Routine AT [facility] 401.1 Hypertension Benign Office Visit 08/28/2007 11:00a [facility] Archie EAissatou 388.70 Otalgia & AT [facility] Need For Prophylactic Vaccination & Inoculation/Influenza Office Visit 07/04/2007 9:30a [facility] Archie Zhu V70.0 Examination Assoc AT Frances Argueta [facility] Routine AT Health Care Facility 401.1 Hypertension Benign 780.57 Unspecified Sleep Apnea Plan of Treatment Future Appointment(s):06/12/2019 3:30 pm - Zhao Petit PA-C at [facility]06/12/2019 3:30 pm - PIYUSH Gee at [facility]06/11/2019 10:00 am - Neyda Barraza NP at [facility]05/31/2019 11:00 am - Archie Argueta M.D. at [facility] Internal Medicine - [facility]06/12/2019 3:30 pm - Caridad Resendiz M.D. at [facility]/07/2019 10:40 am - Archie Argueta M.D. at [facility] Internal Medicine - [facility]05/30/2019 - Caridad Resendiz M.D.M25.562 Pain in left kneeFollow up:Follow up: reschedule ltka when eczema is [id number] Effusion, left kneeM17.12 Unilateral primary osteoarthritis, left knee
[2019-07-26] MEDS ORDERED: Gabapentin CAP(*) 300 MG ONE (13:45)
[2019-07-26] MEDS ORDERED: Dexamethasone IV* 4 MG/ML 1 ML (4 MG) ONE (13:45)
[2019-07-26] MEDS ORDERED: ceFAZolin 2 GM in NS PREMIX(*) 2 GM/100 ML BAG IVPB ONE (13:46)
[2019-07-26] MEDS ORDERED: celeCOXIB CAP* 200 MG ONE (13:46)
[2019-07-26] MEDS ORDERED: Famotidine IV* 10 MG/ML 2 ML (20 mg) ONE (13:46)
[2019-07-26] MEDS ORDERED: Acetaminophen IV 1GM/100ML * 100 ML ONE ×2 (13:46→14:33)
[2019-07-26] MEDS ORDERED: Dexamethasone TAB* 4 MG ONE (13:52)
[2019-07-26] MEDS ORDERED: ROPIVACAINE 5 MG/ML 30 ML BTL (0.5%) ONE ×3 (14:11→14:53)
[2019-07-26] MEDS ORDERED: Midazolam* 1 MG/ML 5 ML VIAL (5 MG) ONE (14:42)
[2019-07-26] MEDS ORDERED: KETAMINE HCL* 50 MG/ML 10 ML VIAL ONE (14:42)
[2019-07-26] MEDS ORDERED: Propofol* 10 MG/ML 20 ML BTL ONE ×2 (14:43→17:28)
[2019-07-26] MEDS ORDERED: Ondansetron INJ* 2 MG/ML VIAL ONE (14:43)
[2019-07-26] MEDS ORDERED: fentaNYL* 50 MCG/ML 2 ML VIAL (100 MCG VIAL) ONE (16:15)
[2019-07-26] MEDS ORDERED: DiMENhydriNATE IV* 50 MG/ML VIAL IV PUSH PRN (16:37)
[2019-07-26] MEDS ORDERED: HYDROmorphone INJ1* 1 MG/ML SYRINGE IV PRN (16:37)
[2019-07-26] MEDS ORDERED: Naloxone* 0.4 MG/ML 1 ML VIAL IV PRN (16:37)
[2019-07-26] MEDS ORDERED: Ondansetron INJ* 2 MG/ML VIAL IV PRN ×2 (16:37→18:04)
[2019-07-26] MEDS ORDERED: fentaNYL* 50 MCG/ML 2 ML VIAL (100 MCG VIAL) IV PRN (16:37)
--- NOTE | 2019-07-26 17:51 | OP ---
Operative Report - Blank - Operative Report Date of Operation: 07/26/19 Note: ISAIAS MCMAHON 1940 Date of Surgery: 07/26/19 Caridad Reesndiz MD Sales Representative Uniforms: Chayo SPENCER did help throughout the procedure with preparation of the knee, wound retraction, manipulation of the knee, and wound closure. Anesthesiologist: Chayo Sanders MD Anesthesia Type: Spinal Preoperative Diagnosis: Left severe degenerative osteoarthritis of the knee Postoperative Diagnosis: As above Procedure Performed: Left Total Knee Arthroplasty Tourniquet time: 46 minutes Complications: None Specimen: Bone and cartilage from the left knee joint sent to pathology. Hardware Used: Cemented Zapata and Nephew total knee hardware was used - For the femur a size 6 left narrow legion posterior stabilized femoral component, for the tibia a size 5 left yaa II tibial baseplate, for the insert a size 9 mm 5-6 posterior stabilized articular polyethylene insert, and for the patella a size 32 3-peg all poly patella. Brief History/Indication: ISAIAS MCMAHON was known in clinic and had a history of severe left knee pain and swelling. She failed conservative treatment with anti-inflammatories, pain pills, intra-articular injections and physical therapy. She elected to undergo left total knee arthroplasty due to continued pain and decreased quality of life. Radiographs showed severe end stage osteoarthritis of the knee with bone on bone contact. Informed consent was obtained from the patient. She understood the risks of surgery included but were not limited to: bleeding, infection, damage to nearby structures, intraoperative fracture, nerve palsy, failure of the hardware, early loosening, knee stiffness or loss of motion, anesthesia complications, stroke, heart attack , blood clot and . She wished to proceed. Intra-Operative Findings: Intraoperatively the patient was noted to have severe loss of cartilage in all 3 compartments of the knee. Description of the Procedure: ISAIAS MCMAHON was identified in the preanesthesia unit. Her left knee was marked as the correct operative side. Informed consent was signed and placed in the chart. The patient was taken to the operating room and placed under anesthesia without complication. A kennedy catheter was placed. A tourniquet was placed on the left thigh. The left lower extremity was prepped and draped in the usual sterile fashion. Preoperative time-out was made to correctly identify the patient, side and site. Appropriate intraoperative antibiotics were given within one hour of incision. Tourniquet was inflated. A midline incision was made and carried sharply down to the extensor mechanism. A new 10 blade was used to make a standard medial parapatellar arthrotomy. The patella was subluxed laterally. Electrocautery was used to dissect soft tissue off the superomedial tibia to the midsagittal plane. The knee was flexed up. The anterior horn of the lateral meniscus and the ACL were sharply incised. A drill was used to enter the distal femur. The intramedullary distal femoral cutting guide was pinned on the distal femur. The oscillating saw was used to make the distal femoral cut. The external rotation guide was pinned on the distal femur and the distal femur was sized to a size 6. The size 6 multi-cutting jig was pinned on the distal femur. The oscillating saw was used to make the appropriate 4 chamfer cuts. Next the PCL was completely released. The extramedullary tibial cutting guide was pinned on the proximal tibia and the oscillating saw was used to make the proximal tibial cut perpendicular to the mechanical axis of the tibia. The bone was carefully removed. The knee was brought out into full extension. The spacer block was placed and had excellent fit with the knee in full extension. The medial and lateral ligaments were well balanced. The flexion and extension gaps were well balanced. The knee was flexed up. Lamina hand cell tuber was placed both medially and laterally. Any remaining meniscus was removed with electrocautery. Curved osteotome was used to remove any posterior osteophytes. The tibial tray and drop nimo were placed and confirmed a satisfactory tibial cut. The size 6 left narrow femoral trial was impacted onto the distal femur. This trial had excellent fit and stability. The box for the posterior stabilized implant was prepared using a box cut osteotome and a reamer. Next a tibial tray trial and 9 mm insert trial was placed. The knee was taken through a range of motion and had full extension to 130 degrees of flexion. Patellofemoral tracking was satisfactory. The patella was inverted and sized to a size 32. Three peg holes were drilled through the size 32 drill guide. The trial patella was placed and the knee was taken through a range of motion. There was satisfactory patellofemoral tracking. All trials were removed. The tibia was subluxed anteriorly and sized to a size 5. The proximal tibial was prepared with a size 5 keel punch. All bony cut surfaces were irrigated with sterile saline and dried. Final implants were cemented into place starting with the tibia, followed by the femur, and last the patella. A 9 mm insert trial was placed and the knee was brought into full extension. Tourniquet was turned down and the knee was copiously irrigated with sterile saline. Electrocautery was used to obtain meticulous hemostasis. Once the cement had fully cured, the insert trial was removed. Any excess cement was removed from around the hardware and capsule. Final insert chosen was a 9 mm posterior stabilized Yaa II articular insert size 5-6. Stability of the insert was checked and noted to be stable. The extensor mechanism was closed using number 1 vicryls. The rest of the incision was closed in a layered fashion using 0 and 2-0 vicryls. The skin was closed using 3-0 nylon suture. Sterile xeroform, 4x4s and webril were used to cover the incision. Abhilash wrap and cold pack were used to cover the dressings. The patients anesthesia was reversed without difficulty. She was taken to the PACU in stable condition. Intended weight-bearing will be as tolerated.
[2019-07-26] MEDS ORDERED: diPHENhydraMINE PO* 25 MG PO PRN (18:04)
[2019-07-26] MEDS ORDERED: diPHENhydraMINE IV* 50 MG/ML 1 ml VIAL (BENADRYL) IV PRN (18:04)
[2019-07-26] MEDS ORDERED: Ondansetron ODT TAB* 4 MG PO PRN (18:04)
[2019-07-26] MEDS ORDERED: Morphine INJ* 10 MG/ML 1 ML CARPUJECT IV PRN (18:04)
[2019-07-26] MEDS ORDERED: oxyCODONE/Acetamin 5/325 MG* TAB PO PRN (18:04)
[2019-07-26] MEDS ORDERED: Magnesium Hydroxide LIQ* 30 ML UDC PO PRN (18:04)
[2019-07-26] MEDS ORDERED: Cyclobenzaprine TAB* 10 MG PO PRN (18:04)
[2019-07-26] MEDS ORDERED: Tacrolimus 0.03% OINT(NF) 30 GM TUBE TOPICAL PRN (18:12)
[2019-07-26] MEDS: Lactated Ringers 1000 ML Bag* 1,000 ML IV SCH (19:00)
[2019-07-26] MEDS ORDERED: Morphine INJ* 2 MG/ML 1 ML SYRINGE (TWO MG - NEW SYRINGE VERSION) ONE (19:20)
[2019-07-26] MEDS ORDERED: Morphine INJ* 2 MG/ML 1 ML SYRINGE (TWO MG - NEW SYRINGE VERSION) IV PRN (19:40)
[2019-07-26] MEDS: Clobetasol 0.05% OINT* 30 GM TUBE TOPICAL SCH (21:00)
[2019-07-26] MEDS ORDERED: Magnesium Hydroxide LIQ* 30 ML UDC PO SCH (21:00)
[2019-07-26] MEDS: oxyCODONE/Acetamin 5/325 MG* TAB PO PRN (21:12)
[2019-07-26] MEDS: Docusate CAP* 100 MG PO SCH (21:12)
--- NOTE | 2019-07-26 22:27 | CONS ---
CC: Dr. Archie Argueta * CONSULTATION REPORT: DATE OF CONSULT: 07/26/19 PRIMARY CARE PROVIDER: Dr. Archie Argueta. REQUESTING PHYSICIAN: Dr. Caridad Resendiz. REASON FOR CONSULT: Management of all chronic medical conditions. HEALTHCARE PROXY: Her , Jomar, phone number [phone]. CHIEF COMPLAINT: Admission for elective left total knee replacement. HISTORY OF PRESENT ILLNESS: Ms. Broderick is a 78-year-old woman with a history of thyroid cancer, status post thyroidectomy and radioactive iodine ablation and hypertension, who is presenting for elective left total knee replacement. She reports 8/10 pain in her left knee with difficulty ambulating and stair climbing because of the pain. She has failed conservative management with antiinflammatories and physical therapy and she elected to proceed for left total knee arthroplasty today. PAST MEDICAL HISTORY: 1. Thyroid cancer, status post thyroidectomy and radioactive iodine ablation in the early . 2. Hypertension. 3. Stress incontinence. HOME MEDICATIONS: 1. Levothyroxine 100 mcg daily. 2. Amlodipine 10 mg daily. 3. Nebivolol 20 mg in the morning. 4. Valsartan/hydrochlorothiazide 160/25 one tablet once a day. 5. Potassium 198 mg daily. 6. Ibuprofen as needed. 7. Aspirin as needed. 8. Centrum 1 tablet daily. ALLERGIES: No known drug allergies. FAMILY HISTORY: The patient's mother had hypertension. She from [facility]. Her father was diagnosed with Parkinson's disease in his 60s. Her younger sister also has Parkinson's disease. SOCIAL HISTORY: The patient lives with her , who is a plant fryer line helper. 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 Denies tob, etoh, or recreational drugs. PHYSICAL EXAM: Afebrile, heart rate 65, blood pressure 152/79, respiratory rate 20, oxygen saturation 96% on room air. In general, she is a well- appearing woman in no acute distress, who is alert, interactive, and very pleasant. Neck: No JVD. HEENT: With dry mucous membranes. Lungs: Clear to auscultation anteriorly. Heart: Regular rate and rhythm. No murmurs, gallops , or rubs. Abdomen: Soft, nontender, nondistended. Lower Extremities: Warm and well perfused without evidence of edema. Left knee wrapped in bandage and compression device postsurgical. Neuro: A and O x3, sensation intact bilaterally. Moves extremities equal and spontaneously. DIAGNOSTIC STUDIES/LAB DATA: CBC this month unremarkable. Creatinine this month at 0.76. TSH last month 6.69, which is likely goal for the patient in her 70s. A1c in February 6.6%. ASSESSMENT AND PLAN: Ms. Broderick is a very pleasant 78-year-old woman with history of thyroid cancer, status post thyroidectomy and radioactive iodine ablation; hypertension; severe left knee osteoarthritis, who presents for elective left total knee arthroplasty on 07/26/19. She tolerated the procedure well. Medicine consulted for management of chronic medical problems. 1. Hypertension. Continue amlodipine 10 mg daily, nebivolol 20 mg daily, and valsartan/hydrochlorothiazide 160/25 mg daily. Continue home potassium supplement. Noted that potassium was 3.6 on 07/11/19. We will continue to monitor blood pressure closely. 2. Thyroid cancer, status post thyroidectomy. Continue the patient's home levothyroxine 100 mcg daily. 3. Left knee osteoarthritis, status post total knee arthroplasty. Continue pain control as ordered by orthopedic surgery team. Monitor bowel movements closely and order bowel regimen as needed. Physical therapy per primary team. 4. DVT prophylaxis. The patient is on apixaban 2.5 mg twice a day per Orthopedic Surgery. 5. Code status. Full code. TIME SPENT: Approximately 60 minutes was spent on consultation of this patient , more than half of which was spent at bedside for interview and exam. [id number]/[facility] #: [id number] MTDD
[2019-07-26] MEDS: Acetaminophen TAB* 325 MG PO SCH (23:40)
[2019-07-26] MEDS: ceFAZolin 1 GM ADVAN(*) 1 GM in NS 0.9% 50 ML* 50 ML IVPB SCH (23:53)
[2019-07-27] MEDS: oxyCODONE TAB* 5 MG TAB PO PRN ×4 (02:06→17:41)
[2019-07-27] MEDS: Lactated Ringers 1000 ML Bag* 1,000 ML IV SCH (05:56)
[2019-07-27 06:03] LABS: Hematocrit 39 % (35-47); Hemoglobin 13.3 g/dL (12.0-16.0); Mean Platelet Volume 9.4 fL (7.4-10.4); Platelet Count 150 10^3/uL (150-450)
[2019-07-27] MEDS: Acetaminophen TAB* 325 MG PO SCH ×3 (06:04→22:03)
[2019-07-27] MEDS: oxyCODONE/Acetamin 5/325 MG* TAB PO PRN ×2 (06:22→20:43)
[2019-07-27 06:23] LABS: BUN/Creatinine Ratio 22.2 (8-20); Calcium 8.5 mg/dL (8.6-10.3); EGFR African American 110.6 (>60); EGFR Non-African American 91.4 (>60); Potassium 3.7 mmol/L (3.5-5.0)
[2019-07-27] MEDS: Levothyroxine TAB* 100 MCG TAB PO SCH (06:23)
[2019-07-27] MEDS: Hydrochlorothiazide TAB* 25 MG PO SCH (09:21)
[2019-07-27] MEDS: ceFAZolin 1 GM ADVAN(*) 1 GM in NS 0.9% 50 ML* 50 ML IVPB SCH ×2 (09:21→15:58)
[2019-07-27] MEDS: Docusate CAP* 100 MG PO SCH ×2 (09:21→20:42)
[2019-07-27] MEDS: amLODIPine TAB* 5 MG PO SCH (09:21)
[2019-07-27] MEDS: Vitamin THERAPEUTIC TAB PO SCH (09:21)
[2019-07-27] MEDS: Apixaban* 2.5 MG TAB PO SCH ×2 (09:21→20:43)
[2019-07-27] MEDS: Valsartan TAB* 160 MG PO SCH (09:21)
[2019-07-27] MEDS: CMCS:Nebivolol TAB (NF) 2.5 MG TAB PO SCH (09:39)
[2019-07-27] MEDS: Clobetasol 0.05% OINT* 30 GM TUBE TOPICAL SCH ×3 (09:39→21:16)
[2019-07-27] MEDS: POTASSIUM 198 MG PO SCH (09:48)
--- NOTE | 2019-07-27 11:03 | PN ---
Progress Note - Progress Note Date of Service: 07/27/19 Note: POD 1 s/p left TKA: patient resting in bed. She has been OOB with PT. She has pain with movement and was unsteady with PT. She denies SOB, CP or dizziness. + DF/PF with intact sensation and 2+ DP pulse. Patient encouraged to use pain medication in order to participate in PT. Continue pain management and we appreciate medicine's guidance. We will monitor and hope for d/c tomorrow.
[2019-07-28] MEDS: oxyCODONE/Acetamin 5/325 MG* TAB PO PRN ×3 (00:54→10:48)
[2019-07-28 05:53] LABS: Hematocrit 34 % (35-47); Hemoglobin 11.9 g/dL (12.0-16.0); Mean Platelet Volume 9.6 fL (7.4-10.4); Platelet Count 135 10^3/uL (150-450)
[2019-07-28] MEDS: Levothyroxine TAB* 100 MCG TAB PO SCH (06:01)
[2019-07-28] MEDS: Acetaminophen TAB* 325 MG PO SCH ×2 (07:00→14:01)
--- NOTE | 2019-07-28 08:26 | PN ---
Progress Note - Progress Note Date of Service: 07/28/19 SOAP: Subjective: [Pt doing well. Pain managed with po meds. Denies CP, SOB, N/V, calf pain. Feels ready to go home.] Objective: [A and O x 3, NAD L knee dressing changed. Surgical wound benign. Distal gross motor, NV function intact. Calves soft, NT Vital Signs: Temp Pulse Resp BP Pulse Ox 97.3 F 61 18 137/66 91 07/28/19 07:53 07/28/19 07:53 07/28/19 07:53 07/28/19 07:53 07/28/19 07:53 Laboratory Results - last 24 hr 07/28/19 04:50 Hgb 11.9 L Hct 34 L Plt Count 135 L MPV 9.6 ] Assessment: [s/p L TKA POD #2] Plan: [PT D/C pt home with services Pedro Otero F/U with Dr. Resendiz in 2 weeks]
[2019-07-28] MEDS ORDERED: Influenza VAC *QUAD* 2019-20* 0.5 ML SYRINGE IM ONE (09:00)
[2019-07-28] MEDS: POTASSIUM 198 MG PO SCH (10:19)
[2019-07-28] MEDS: amLODIPine TAB* 5 MG PO SCH (10:19)
[2019-07-28] MEDS: Apixaban* 2.5 MG TAB PO SCH (10:20)
[2019-07-28] MEDS: Clobetasol 0.05% OINT* 30 GM TUBE TOPICAL SCH (10:20)
[2019-07-28] MEDS: Valsartan TAB* 160 MG PO SCH (10:20)
[2019-07-28] MEDS: Hydrochlorothiazide TAB* 25 MG PO SCH (10:20)
[2019-07-28] MEDS: Docusate CAP* 100 MG PO SCH (10:20)
[2019-07-28] MEDS: Vitamin THERAPEUTIC TAB PO SCH (10:20)
[2019-07-28] MEDS: CMCS:Nebivolol TAB (NF) 2.5 MG TAB PO SCH (10:20)
[2019-07-28 11:24] VITALS: BP 145/59
[2019-07-28] MEDS: oxyCODONE TAB* 5 MG TAB PO PRN (15:20)
[2019-07-28] MEDS ORDERED: Bisacodyl SUPP* 10 MG SUPP PR PRN (18:04)
--- NOTE | 2019-07-28 21:16 | DS ---
AMENDED REPORT NOW INCLUDES DESIGNATED COSIGNER DISCHARGE SUMMARY: DATE OF ADMISSION: 07/26/19 DATE OF DISCHARGE: 07/28/19 ADMITTING PHYSICIAN: Dr. Resendiz.* (DICTATED BY TJ RENEE) ADMITTING DIAGNOSES: 1. Left knee osteoarthritis. 2. Hypothyroidism. 3. Hypertension. 4. Hypercholesterolemia. 5. Sleep apnea. 6. Stress incontinence. DISCHARGE DIAGNOSES: 1. Status post left total knee arthroplasty. 2. Hypothyroidism. 3. Hypertension. 4. Hypercholesterolemia. 5. Sleep apnea. 6. Stress incontinence. PROCEDURE: Left total knee arthroplasty. CONSULTANTS: Physical Therapy and Occupational Therapy. BRIEF HISTORY: Ms. Broderick is a 78-year-old female with severe degenerative osteoarthritis of her left knee. She failed conservative treatment measures and elected to undergo a left total knee arthroplasty on 07/26/[address] Resendiz. HOSPITAL COURSE: Ms. Broderick was admitted to the [facility] on 07/26. She underwent an uncomplicated left total knee arthroplasty. Postoperatively, she recovered on the short stay surgical unit. Her Gavin catheter was removed on postoperative day 1 and she was able to urinate on her own. On postoperative day 2, she advanced to a regular diet without difficulty. Her pain was well controlled with Percocet and she was also taking Flexeril with muscle spasms. She was restarted on her home medications. The vital signs and labs remained stable. She was able to bear weight as tolerated on the left lower extremity. She advanced appropriately with physical therapy and occupational therapy. DVT prophylaxis was Eliquis 2.5 mg b.i.d. By postoperative day #2, she was orthopedically and medically stable for discharge to home with services. PHYSICAL EXAMINATION: General: On examination, the patient is noted to be calm and cooperative, in no acute distress. She is alert and oriented x3. Vital Signs: On day of discharge, temperature 97.3 degrees Fahrenheit, pulse rate 61, respirations 18, O2 sat 91% on room air, blood pressure 137/66. Extremities: Examination of her left lower extremity demonstrates a dressing overlying the left knee which is clean, dry, and intact. Her calf is soft and nontender. Distally, she has +2 palpable DP pulse, 5/5 ankle dorsiflexion, plantar flexion and strength. Sensation is intact to light touch. DIAGNOSTIC STUDIES/LAB DATA: Laboratory data on date of discharge: Hemoglobin 11.9, hematocrit 34. Radiographs: Postoperative radiographs of the left knee demonstrate a left total knee arthroplasty with satisfactory prosthesis placement and no acute bony abnormalities. DISCHARGE MEDICATIONS: 1. Levothyroxine sodium 100 mcg daily. 2. Bystolic 20 mg daily. 3. Valsartan/hydrochlorothiazide 160/25 mg daily. 4. Amlodipine besylate 10 mg daily. 5. Potassium 99 mg 2 tabs daily. 6. Centrum Silver 1 tab daily. 7. Triamcinolone acetonide. 8. Meloxicam. 9. Aspirin as needed. 10. Tacrolimus 0.03% use on affected area 2 times daily as needed. 11. Clobetasol propionate 0.05%. 12. Eliquis 2.5 mg b.i.d. for 1 month. 13. Flexeril 10 mg up to t.i.d. p.r.n. spasms. 14. Percocet 5/325 1 to 2 tabs p.o. daily q.4 to 6 hours p.r.n. pain. CONDITION ON DISCHARGE: Stable. DISCHARGE INSTRUCTIONS: Ms. Broderick is a 78-year-old female postoperative day # 2 status post left total knee arthroplasty which was uncomplicated. She is orthopedically and medically stable to be discharged home with services. Vital signs and labs are stable. She has been restarted on her home medications. She will remain weightbearing as tolerated on the left lower extremity and have home physical therapy twice a day. She will take Percocet for pain control and Colace up to 3 times a day for constipation. She will follow up in the office with Dr. Resendiz in 10 to 14 days for incision check and suture removal. She was instructed to call Dr. Resendiz or go immediately to the ER should she develop any new fevers, chills, incision pain, redness, or drainage. She was instructed to go immediately to the ER should she develop chest pain or shortness of breath. TJ RENEE [id number]/[facility] #: [id number] [facility]
== END 2019-07-28 16:55 | disposition home health service (06) | DRG 470 ==
LOC: AA 07-26 13:08 → SSU 07-26 19:00
PROVIDERS: ADMIT Orthopaedic Surgery Adult Reconstructive Orthopaedic Surgery; ATTEND Orthopaedic Surgery Adult Reconstructive Orthopaedic Surgery
PROC: 0SRD0J9 Replacement of Left Knee Joint with Synthetic Substitute, Cemented, Open Approach (ICD-10-PCS; principal; 2019-07-26 16:15)
DX: M17.12 Unilateral primary osteoarthritis, left knee (principal); I10 Essential (primary) hypertension; E89.0 Postprocedural hypothyroidism; E66.9 Obesity, unspecified; G47.33 Obstructive sleep apnea (adult) (pediatric); E11.9 Type 2 diabetes mellitus without complications; M25.762 Osteophyte, left knee; E78.1 Pure hyperglyceridemia; N39.3 Stress incontinence (female) (male); Z79.899 Other long term (current) drug therapy; Z85.850 Personal history of malignant neoplasm of thyroid; Z82.0 Family history of epilepsy and other diseases of the nervous system; Z80.6 Family history of leukemia; Z68.36 Body mass index [BMI] 36.0-36.9, adult; Z87.891 Personal history of nicotine dependence
CPT/HCPCS: 36415; 80048; 85014; 85018; 85049; 88305; 88311; A9270-GY; C1776; G8978-GP-CJ; G8979-GP-CI; J0690; J1100; J2250; J2270; J2405; J2704; J2795; J3010; J8540

== ENCOUNTER 2019-07-29 14:49 | Inpatient (IN) | payer MEDICARE, OTHER ==
[2019-07-29] MEDS ORDERED: Ondansetron INJ* 2 MG/ML VIAL IV ONE (15:04)
[2019-07-29] MEDS ORDERED: NS 0.9% 1000 ML** 1,000 ML IV ONE (15:04)
[2019-07-29 15:28] LABS: ABS Lymphocytes 0.5 10^3/ul (1.0-4.8); ABS Monocytes 0.9 10^3/ul (0-0.8); ABS Neutrophils 8.6 10^3/ul (1.5-7.7); Eosinophil % 0.4 %; Hematocrit 38 % (35-47); Lymphocyte % 5.4 %; Mean Corpuscular HGB Conc 34 g/dL (31-36); Mean Corpuscular Hemoglobin 30 pg (27-31); Mean Corpuscular Volume 87 fL (80-97); Mean Platelet Volume 9.9 fL (7.4-10.4); Platelet Count 158 10^3/uL (150-450); Red Blood Count 4.34 10^6 /uL (3.70-4.87); Red Cell Distribution Width 14 % (10-15); White Blood Count 10.1 10^3/uL (3.5-10.8)
[2019-07-29 15:34] LABS: INR 1.35 (0.82-1.09)
[2019-07-29 15:39] LABS: Albumin 3.8 g/dL (3.2-5.2); Albumin/Globulin Ratio 1.3 (1-3); C Reactive Protein 182.63 mg/L (<8.01); Calcium 8.6 mg/dL (8.6-10.3); EGFR Non-African American 111.6 (>60); Potassium 3.3 mmol/L (3.5-5.0); Total Bilirubin 0.7 mg/dL (0.2-1.0); Total Protein 6.8 g/dL (6.4-8.9)
[2019-07-29] MEDS ORDERED: oxyCODONE/Acetamin 5/325 MG* TAB PO PRN ×4 (15:48→15:51)
[2019-07-29] MEDS ORDERED: Acetaminophen TAB* 325 MG PO PRN (15:48)
[2019-07-29] MEDS ORDERED: diPHENhydraMINE PO* 25 MG PO PRN (15:51)
[2019-07-29] MEDS ORDERED: Ondansetron ODT TAB* 4 MG PO PRN (15:51)
[2019-07-29] MEDS ORDERED: Magnesium Hydroxide LIQ* 30 ML UDC PO PRN (15:51)
[2019-07-29] MEDS ORDERED: Cyclobenzaprine TAB* 10 MG PO PRN (15:51)
[2019-07-29] MEDS ORDERED: Ondansetron INJ* 2 MG/ML VIAL IV PRN (15:51)
[2019-07-29] MEDS ORDERED: diPHENhydraMINE IV* 50 MG/ML 1 ml VIAL (BENADRYL) IV PRN (15:51)
--- NOTE | 2019-07-29 15:56 | ED ---
Nausea/Vomiting/Diarrhea HPI - HPI Summary HPI Summary: Patient is a 78-year-old patient who is s/p POD #[address] Resendiz. Pt returns today stating she is unable to care for herself after surgery and remains incontinent, unable to stand d/t pain and now is endorsing nausea. She feels she needs to be placed in a nursing care facility/rehab until she is able to ambulate well and take care of herself at home. She has not been eating or drinking since her DC yesterday afternoon. Has not taken any of her pain medication, however continues to take her anticoagulation medications. Pt endorses nausea without vomiting, no abd pain, knee pain intermittently if she moves, low grade temps (99.5) and sweats and chills only when nauseous. at bedside. - History of Current Complaint Chief Complaint: EDGeneral Stated Complaint: KNEE PAIN,WEAKNESS,NAUSEA PER EMS Time Seen by Provider: 07/29/19 14:51 Hx Obtained From: Patient ?: No Onset/Duration: Sudden Onset Timing: Constant Severity Initially: Moderate Severity Currently: Moderate Pain Intensity: 8 Pain Scale Used: 0-10 Numeric Nausea/Vomiting Duration: 0-12 hours - Risk Factors Influenza Risk Factors: Negative Surgical Obstruction Risk Factor(s): Negative - Allergies/Home Medications Allergies/Adverse Reactions: Allergies Allergy/AdvReac Type Severity Reaction Status Date / Time No Known Allergies Allergy Verified 07/26/19 13:45 PMH/Surg Hx/FS Hx/Imm Hx Previously Healthy: Yes Endocrine/Hematology History: Reports: Hx Diabetes - borderline type 2, Hx Thyroid Disease - thyroid cancer-removed Denies: Hx Anticoagulant Therapy - Aspirin not taken regularly. Cardiovascular History: Reports: Hx Hypertension Denies: Hx Congestive Heart Failure, Hx Deep Vein Thrombosis, Hx Myocardial Infarction, Hx Pacemaker/ICD, Other Cardiovascular Problems/Disorders Respiratory History: Reports: Hx Sleep Apnea Denies: Hx Asthma, Hx Chronic Obstructive Pulmonary Disease (COPD), Hx Lung Cancer, Hx Pneumonia, Hx Pulmonary Embolism Comment Only: Other Respiratory Problems/Disorders - Per pt. sleep hypoxnia. Uses CPEP GI History: Denies: Hx Gall Bladder Disease, Hx Gastrointestinal Bleed, Hx Ulcer, Hx Urosepsis, Other GI Disorders History: Denies: Hx Kidney Stones, Hx Renal Disease Sensory History: Reports: Hx Cataracts, Hx Contacts or Glasses - glasses Denies: Hx Hearing Aid Opthamlomology History: Reports: Hx Cataracts, Hx Contacts or Glasses - glasses Neurological History: Denies: Hx Dementia, Hx Migraine, Hx Seizures, Hx Transient Ischemic Attacks (TIA), Other Neuro Impairments/Disorders Psychiatric History: Denies: Hx Anxiety, Hx Depression, Hx Schizophrenia, Hx Bipolar Disorder - Cancer History Cancer Type, Location and Year: thyroid ca 2010 Hx Chemotherapy: No Hx Radiation Therapy: Yes - RADIOACTIVE IODINE DRINK, THYROID CANCER 2009 - Surgical History Surgery Procedure, Year, and Place: TOTAL THYROID REMOVAL;2008;[facility]. cervical mass removed 2013 Hx Anesthesia Reactions: No - Immunization History Hx Pertussis Vaccination: No Immunizations Up to Date: Yes Infectious Disease History: No Infectious Disease History: Reports: History Other Infectious Disease - lyme disease Denies: Hx Clostridium Difficile, Hx Hepatitis, Hx Human Immunodeficiency Virus (HIV), Hx of Known/Suspected MRSA, Hx Shingles, Hx Tuberculosis, Traveled Outside the [place] in Last 30 Days - Family History Known Family History: Positive: Hypertension Negative: Cardiac Disease - Social History Alcohol Use: Rare Alcohol Amount: HOLIDAYS Substance Use Type: Reports: None Hx Tobacco Use: Yes - approx. 55 years ago Smoking Status (MU): Former Smoker Amount Used/How Often: 2 CIGS PER DAY Have You Smoked in the Last Year: No Review of Systems Negative: Fever, Chills, Fatigue, Skin Diaphoresis Negative: Palpitations, Chest Pain Negative: Shortness Of Breath, Cough Positive: Nausea. Negative: Abdominal Pain, Vomiting, Diarrhea Genitourinary: Negative Positive: no symptoms reported, see HPI Positive: Arthralgia - left knee pain. Negative: Myalgia Skin: Negative Positive: Other - incidision to the L knee - CDI Neurological: Negative All Other Systems Reviewed And Are Negative: Yes Physical Exam Triage Information Reviewed: Yes Vital Signs On Initial Exam: Initial Vitals Temp Pulse Resp BP Pulse Ox 97.8 F 77 19 178/77 94 07/29/19 15:01 07/29/19 15:01 07/29/19 15:01 07/29/19 15:01 07/29/19 15:01 Vital Signs Reviewed: Yes Appearance: Positive: Well-Nourished, Pain Distress Skin: Positive: Warm, Skin Color Reflects Adequate Perfusion Cardiovascular: Positive: RRR, Pulses are Symmetrical in both Upper and Lower Extremities Abdomen Description: Positive: Soft. Negative: Nontender, No Organomegaly, CVA Tenderness (R), CVA Tenderness (L) Musculoskeletal: Positive: Strength/ROM Intact, Pain @ - left knee Neurological: Positive: Alert, Oriented to Person Place, Time Psychiatric: Positive: Normal, Affect/Mood Appropriate AVPU Assessment: Alert Procedures - Sedation Patient Received Moderate/Deep Sedation with Procedure: No Diagnostics - Vital Signs Vital Signs Temp Pulse Resp BP Pulse Ox 07/29/19 15:01 97.8 F 77 19 178/77 94 - Laboratory Lab Results: Lab Results 07/29/19 07/29/19 07/29/19 Range/Units 15:14 15:14 15:14 WBC 10.1 (3.5-10.8) 10^3/uL RBC 4.34 (3.70-4.87) 10^6 /uL Hgb 13.0 (12.0-16.0) g/dL Hct 38 (35-47) % MCV 87 (80-97) fL MCH 30 (27-31) pg MCHC 34 (31-36) g/dL RDW 14 (10-15) % Plt Count 158 (150-450) 10^3/uL MPV 9.9 (7.4-10.4) fL Neut % (Auto) 85.3 % Lymph % (Auto) 5.4 % [place] % (Auto) 8.6 % Eos % (Auto) 0.4 % Baso % (Auto) 0.3 % Absolute Neuts (auto) 8.6 H (1.5-7.7) 10^3/ul Absolute Lymphs (auto) 0.5 L (1.0-4.8) 10^3/ul Absolute Monos (auto) 0.9 H (0-0.8) 10^3/ul Absolute Eos (auto) 0.0 (0-0.6) 10^3/ul Absolute Basos (auto) 0.0 (0-0.2) 10^3/ul Absolute Nucleated RBC 0.0 10^3/ul Nucleated RBC % 0.0 INR (Anticoag Therapy) (0.82-1.09) Sodium 136 (135-145) mmol/L Potassium 3.3 L (3.5-5.0) mmol/L Chloride 97 L (101-111) mmol/L Carbon Dioxide 32 (22-32) mmol/L Anion Gap 7 (2-11) mmol/L BUN 9 (6-24) mg/dL Creatinine 0.53 (0.51-0.95) mg/dL Est GFR ( Amer) 135.0 (>60) Est GFR (Non-Af Amer) 111.6 (>60) BUN/Creatinine Ratio 17.0 (8-20) Glucose 169 H (70-100) mg/dL Lactic Acid 0.9 (0.5-2.0) mmol/L Calcium 8.6 (8.6-10.3) mg/dL Total Bilirubin 0.70 (0.2-1.0) mg/dL AST 16 (13-39) U/L ALT 16 (7-52) U/L Alkaline Phosphatase 53 (34-104) U/L C-Reactive Protein 182.63 H (<8.01) mg/L Total Protein 6.8 (6.4-8.9) g/dL Albumin 3.8 (3.2-5.2) g/dL Globulin 3.0 (2-4) g/dL Albumin/Globulin Ratio 1.3 (1-3) 07/29/19 Range/Units 15:14 WBC (3.5-10.8) 10^3/uL RBC (3.70-4.87) 10^6 /uL Hgb (12.0-16.0) g/dL Hct (35-47) % MCV (80-97) fL MCH (27-31) pg MCHC (31-36) g/dL RDW (10-15) % Plt Count (150-450) 10^3/uL MPV (7.4-10.4) fL Neut % (Auto) % Lymph % (Auto) % [place] % (Auto) % Eos % (Auto) % Baso % (Auto) % Absolute Neuts (auto) (1.5-7.7) 10^3/ul Absolute Lymphs (auto) (1.0-4.8) 10^3/ul Absolute Monos (auto) (0-0.8) 10^3/ul Absolute Eos (auto) (0-0.6) 10^3/ul Absolute Basos (auto) (0-0.2) 10^3/ul Absolute Nucleated RBC 10^3/ul Nucleated RBC % INR (Anticoag Therapy) 1.35 H (0.82-1.09) Sodium (135-145) mmol/L Potassium (3.5-5.0) mmol/L Chloride (101-111) mmol/L Carbon Dioxide (22-32) mmol/L Anion Gap (2-11) mmol/L BUN (6-24) mg/dL Creatinine (0.51-0.95) mg/dL Est GFR ( Amer) (>60) Est GFR (Non-Af Amer) (>60) BUN/Creatinine Ratio (8-20) Glucose (70-100) mg/dL Lactic Acid (0.5-2.0) mmol/L Calcium (8.6-10.3) mg/dL Total Bilirubin (0.2-1.0) mg/dL AST (13-39) U/L ALT (7-52) U/L Alkaline Phosphatase (34-104) U/L C-Reactive Protein (<8.01) mg/L Total Protein (6.4-8.9) g/dL Albumin (3.2-5.2) g/dL Globulin (2-4) g/dL Albumin/Globulin Ratio (1-3) Result Diagrams: 07/29/19 15:14 07/29/19 15:14 Lab Statement: Any lab studies that have been ordered have been reviewed, and results considered in the medical decision making process. Naus/Vom/Diarrhea Course/Dx - Course Course Of Treatment: Pt requests rehab favility as she is status POD #3. She does not feel she is able to care for herself at home. She is requesting [facility], rehabilitation facility at this time. Labs obtained which are unremarkable. Incision to the left knee clean dry and intact. Afebrile on arrival. Vital signs are stable. Patient appears dry. Endorsing nausea. She is given fluids, Zofran. Discussed case with Dr. Hays who suggests admission for overnight and placement possibly tomorrow. Discussed with Dr. Mcmillan who agrees to admit. [place] (ortho) called to state she will place orders for admission. - Differential Dx/Diagnosis Differential Diagnoses - Female: Other - knee pain, request for placement, nausea Provider Diagnosis: Knee pain, Encounter for rehabilitation evaluation - Physician Notification/Consults Discussed Case/Management/Disposition Of Patient With: Elliott Hays Instructed by Provider To: Admit As Inpatient - will see and admit pt Discharge ED - Sign-Out/Discharge Documenting (check all that apply): Patient Departure - Discharge Plan Condition: Good Disposition: ADMITTED TO [facility] Referrals: Archie Argueta MD [Primary Care Provider] - - Billing Disposition and Condition Condition: GOOD Disposition: Admitted to [facility]
[2019-07-29] MEDS: Lactated Ringers 1000 ML Bag* 1,000 ML IV SCH (18:27)
[2019-07-29] MEDS: Docusate CAP* 100 MG PO SCH (20:40)
[2019-07-29] MEDS: Apixaban* 2.5 MG TAB PO SCH ×2 (20:48→23:00)
[2019-07-29] MEDS: Magnesium Hydroxide LIQ* 30 ML UDC PO SCH (20:48)
[2019-07-29] MEDS: Acetaminophen TAB* 325 MG PO SCH (22:59)
[2019-07-30] MEDS: Lactated Ringers 1000 ML Bag* 1,000 ML IV SCH ×2 (01:54→06:24)
[2019-07-30] MEDS: Acetaminophen TAB* 325 MG PO SCH ×3 (06:25→21:41)
[2019-07-30 07:03] LABS: Hematocrit 37 % (35-47); Hemoglobin 12.6 g/dL (12.0-16.0); Mean Platelet Volume 9.2 fL (7.4-10.4); Platelet Count 161 10^3/uL (150-450)
[2019-07-30 07:23] LABS: BUN/Creatinine Ratio 16.1 (8-20); Calcium 8.6 mg/dL (8.6-10.3); EGFR African American 126.7 (>60); EGFR Non-African American 104.7 (>60); Potassium 3.4 mmol/L (3.5-5.0)
[2019-07-30] MEDS ORDERED: Levothyroxine TAB* 100 MCG TAB PO SCH (09:00)
[2019-07-30] MEDS: Valsartan TAB* 160 MG PO SCH (09:35)
[2019-07-30] MEDS: CMC:Nebivolol TAB (NF) 2.5 MG TAB PO SCH (09:35)
[2019-07-30] MEDS: Apixaban* 2.5 MG TAB PO SCH ×2 (09:38→21:39)
[2019-07-30] MEDS: Hydrochlorothiazide TAB* 25 MG PO SCH (09:38)
[2019-07-30] MEDS: Vitamin THERAPEUTIC TAB PO SCH (09:39)
[2019-07-30] MEDS: amLODIPine TAB* 5 MG PO SCH (09:39)
[2019-07-30] MEDS: Magnesium Hydroxide LIQ* 30 ML UDC PO SCH ×2 (09:44→21:42)
[2019-07-30] MEDS: Docusate CAP* 100 MG PO SCH ×2 (09:44→21:42)
--- NOTE | 2019-07-30 19:31 | PN ---
Progress Note - Progress Note Date of Service: 07/30/19 SOAP: Subjective: []Pt seen at bedside, she was readmit after going home due to inability to care for herself at home. States her pharmacy was closed and she could not fruit or nut picker RX , power went out leaving her without cryo cuff or CPAP, which result in her coming back to the hospital. Denies CP, SOB, dizziness, nausea. Knee pain is well controlled. Objective: []Gen: Appears well, NAD LLE: Dressing changed, incision CDI without erythema. DF/PF intact, Dp2+, sensation intact to light touch distally Calves supple and nontender without erythema, edema or palpable cords Assessment: [] sp LTK Plan: []WBAT PT Eliquis 2.5 mg po BID x 30 days post op Needs rehab placement- patient and desires to pay out of pocket for formerly [facility], [facility] if insurance does not approve. Vital Signs Temp 97.9 F 07/30/19 15:01 Pulse 73 07/30/19 11:11 Resp 16 07/30/19 15:01 BP 139/69 07/30/19 15:01 Pulse Ox 94 07/30/19 11:11 Intake & Output 07/30/19 07/30/19 07/31/19 06:59 18:59 06:59 Intake Total 1342 1640 Output Total 1140 Balance 202 1640 Weight 235 lb 12.8 oz Intake: IV Fluids 982 Oral 360 1640 Output: Urine 1140 Other: Estimated Void Medium # Bowel Movements 1 2 Estimated Stool Amount Large Small # Voids 1 Laboratory Last Values WBC 10.1 10^3/uL (3.5-10.8) 07/29/19 15:14 RBC 4.34 10^6 /uL (3.70-4.87) 07/29/19 15:14 Hgb 12.6 g/dL (12.0-16.0) 07/30/19 06:14 Hct 37 % (35-47) 07/30/19 06:14 MCV 87 fL (80-97) 07/29/19 15:14 MCH 30 pg (27-31) 07/29/19 15:14 MCHC 34 g/dL (31-36) 07/29/19 15:14 RDW 14 % (10-15) 07/29/19 15:14 Plt Count 161 10^3/uL (150-450) 07/30/19 06:14 MPV 9.2 fL (7.4-10.4) 07/30/19 06:14 Neut % (Auto) 85.3 % 07/29/19 15:14 Lymph % (Auto) 5.4 % 07/29/19 15:14 [place] % (Auto) 8.6 % 07/29/19 15:14 Eos % (Auto) 0.4 % 07/29/19 15:14 Baso % (Auto) 0.3 % 07/29/19 15:14 Absolute Neuts (auto) 8.6 10^3/ul (1.5-7.7) H 07/29/19 15:14 Absolute Lymphs (auto) 0.5 10^3/ul (1.0-4.8) L 07/29/19 15:14 Absolute Monos (auto) 0.9 10^3/ul (0-0.8) H 07/29/19 15:14 Absolute Eos (auto) 0.0 10^3/ul (0-0.6) 07/29/19 15:14 Absolute Basos (auto) 0.0 10^3/ul (0-0.2) 07/29/19 15:14 Absolute Nucleated RBC 0.0 10^3/ul 07/29/19 15:14 Nucleated RBC % 0.0 07/29/19 15:14 INR (Anticoag Therapy) 1.35 (0.82-1.09) H 07/29/19 15:14 Sodium 138 mmol/L (135-145) 07/30/19 06:14 Potassium 3.4 mmol/L (3.5-5.0) L 07/30/19 06:14 Chloride 99 mmol/L (101-111) L 07/30/19 06:14 Carbon Dioxide 32 mmol/L (22-32) 07/30/19 06:14 Anion Gap 7 mmol/L (2-11) 07/30/19 06:14 BUN 9 mg/dL (6-24) 07/30/19 06:14 Creatinine 0.56 mg/dL (0.51-0.95) 07/30/19 06:14 Est GFR ( Amer) 126.7 (>60) 07/30/19 06:14 Est GFR (Non-Af Amer) 104.7 (>60) 07/30/19 06:14 BUN/Creatinine Ratio 16.1 (8-20) 07/30/19 06:14 Glucose 137 mg/dL (70-100) H 07/30/19 06:14 Lactic Acid 0.9 mmol/L (0.5-2.0) 07/29/19 15:14 Calcium 8.6 mg/dL (8.6-10.3) 07/30/19 06:14 Total Bilirubin 0.70 mg/dL (0.2-1.0) 07/29/19 15:14 AST 16 U/L (13-39) 07/29/19 15:14 ALT 16 U/L (7-52) 07/29/19 15:14 Alkaline Phosphatase 53 U/L (34-104) 07/29/19 15:14 C-Reactive Protein 182.63 mg/L (<8.01) H 07/29/19 15:14 Total Protein 6.8 g/dL (6.4-8.9) 07/29/19 15:14 Albumin 3.8 g/dL (3.2-5.2) 07/29/19 15:14 Globulin 3.0 g/dL (2-4) 07/29/19 15:14 Albumin/Globulin Ratio 1.3 (1-3) 07/29/19 15:14
[2019-07-31] MEDS: Levothyroxine TAB* 100 MCG TAB PO SCH (05:17)
[2019-07-31] MEDS: Acetaminophen TAB* 325 MG PO SCH ×3 (05:18→22:04)
[2019-07-31 06:55] LABS: Hematocrit 37 % (35-47); Hemoglobin 12.7 g/dL (12.0-16.0); Mean Platelet Volume 8.5 fL (7.4-10.4); Platelet Count 191 10^3/uL (150-450)
[2019-07-31] MEDS: Hydrochlorothiazide TAB* 25 MG PO SCH (08:59)
[2019-07-31] MEDS: Vitamin THERAPEUTIC TAB PO SCH (08:59)
[2019-07-31] MEDS: Valsartan TAB* 160 MG PO SCH (08:59)
[2019-07-31] MEDS: Magnesium Hydroxide LIQ* 30 ML UDC PO SCH ×2 (09:00→22:04)
[2019-07-31] MEDS: Apixaban* 2.5 MG TAB PO SCH ×2 (09:00→22:03)
[2019-07-31] MEDS: Docusate CAP* 100 MG PO SCH ×2 (09:00→22:03)
[2019-07-31] MEDS: amLODIPine TAB* 5 MG PO SCH (09:00)
[2019-07-31] MEDS: CMC:Nebivolol TAB (NF) 2.5 MG TAB PO SCH (09:00)
[2019-07-31] MEDS ORDERED: Bisacodyl SUPP* 10 MG SUPP PR PRN (15:51)
--- NOTE | 2019-07-31 17:35 | PN ---
Progress Note - Progress Note Date of Service: 07/31/19 SOAP: Subjective: []Pt seen at bedside she feels well, knee pain is well controlled. Denies CP, SOB, dizziness. Mild nausea but tolerating PO, no abd pain and had BM today. Objective: []Gen: Appears well, NAD LLE: Dressing changed, incision CDI without erythema. DF/PF intact, Dp2+, sensation intact to light touch distally Calves supple and nontender without erythema, edema or palpable cords Assessment: []sp LTK Plan: []WBAT PT Eliquis 2.5 mg po BID x 30 days post op Needs rehab placement- [facility] Vital Signs Temp 99 F 07/31/19 15:15 Pulse 64 07/31/19 15:15 Resp 14 07/31/19 15:15 BP 146/68 07/31/19 17:33 Pulse Ox 96 07/31/19 15:15 Intake & Output 07/30/19 07/31/19 07/31/19 18:59 06:59 18:59 Intake Total 1640 200 360 Balance 1640 200 360 Intake: Oral 1640 200 360 Other: Estimated Void Medium Medium # Bowel Movements 2 0 Estimated Stool Amount Small # Voids 1 1 Laboratory Last Values WBC 10.1 10^3/uL (3.5-10.8) 07/29/19 15:14 RBC 4.34 10^6 /uL (3.70-4.87) 07/29/19 15:14 Hgb 12.7 g/dL (12.0-16.0) 07/31/19 06:33 Hct 37 % (35-47) 07/31/19 06:33 MCV 87 fL (80-97) 07/29/19 15:14 MCH 30 pg (27-31) 07/29/19 15:14 MCHC 34 g/dL (31-36) 07/29/19 15:14 RDW 14 % (10-15) 07/29/19 15:14 Plt Count 191 10^3/uL (150-450) 07/31/19 06:33 MPV 8.5 fL (7.4-10.4) 07/31/19 06:33 Neut % (Auto) 85.3 % 07/29/19 15:14 Lymph % (Auto) 5.4 % 07/29/19 15:14 [place] % (Auto) 8.6 % 07/29/19 15:14 Eos % (Auto) 0.4 % 07/29/19 15:14 Baso % (Auto) 0.3 % 07/29/19 15:14 Absolute Neuts (auto) 8.6 10^3/ul (1.5-7.7) H 07/29/19 15:14 Absolute Lymphs (auto) 0.5 10^3/ul (1.0-4.8) L 07/29/19 15:14 Absolute Monos (auto) 0.9 10^3/ul (0-0.8) H 07/29/19 15:14 Absolute Eos (auto) 0.0 10^3/ul (0-0.6) 07/29/19 15:14 Absolute Basos (auto) 0.0 10^3/ul (0-0.2) 07/29/19 15:14 Absolute Nucleated RBC 0.0 10^3/ul 07/29/19 15:14 Nucleated RBC % 0.0 07/29/19 15:14 INR (Anticoag Therapy) 1.35 (0.82-1.09) H 07/29/19 15:14 Sodium 138 mmol/L (135-145) 07/30/19 06:14 Potassium 3.4 mmol/L (3.5-5.0) L 07/30/19 06:14 Chloride 99 mmol/L (101-111) L 07/30/19 06:14 Carbon Dioxide 32 mmol/L (22-32) 07/30/19 06:14 Anion Gap 7 mmol/L (2-11) 07/30/19 06:14 BUN 9 mg/dL (6-24) 07/30/19 06:14 Creatinine 0.56 mg/dL (0.51-0.95) 07/30/19 06:14 Est GFR ( Amer) 126.7 (>60) 07/30/19 06:14 Est GFR (Non-Af Amer) 104.7 (>60) 07/30/19 06:14 BUN/Creatinine Ratio 16.1 (8-20) 07/30/19 06:14 Glucose 137 mg/dL (70-100) H 07/30/19 06:14 Lactic Acid 0.9 mmol/L (0.5-2.0) 07/29/19 15:14 Calcium 8.6 mg/dL (8.6-10.3) 07/30/19 06:14 Total Bilirubin 0.70 mg/dL (0.2-1.0) 07/29/19 15:14 AST 16 U/L (13-39) 07/29/19 15:14 ALT 16 U/L (7-52) 07/29/19 15:14 Alkaline Phosphatase 53 U/L (34-104) 07/29/19 15:14 C-Reactive Protein 182.63 mg/L (<8.01) H 07/29/19 15:14 Total Protein 6.8 g/dL (6.4-8.9) 07/29/19 15:14 Albumin 3.8 g/dL (3.2-5.2) 07/29/19 15:14 Globulin 3.0 g/dL (2-4) 07/29/19 15:14 Albumin/Globulin Ratio 1.3 (1-3) 07/29/19 15:14
[2019-08-01] MEDS: Levothyroxine TAB* 100 MCG TAB PO SCH (05:43)
[2019-08-01] MEDS: Acetaminophen TAB* 325 MG PO SCH (05:43)
[2019-08-01 06:59] LABS: Hematocrit 38 % (35-47); Hemoglobin 12.8 g/dL (12.0-16.0); Mean Platelet Volume 8.6 fL (7.4-10.4); Platelet Count 214 10^3/uL (150-450)
[2019-08-01] MEDS: Apixaban* 2.5 MG TAB PO SCH (11:00)
[2019-08-01] MEDS: amLODIPine TAB* 5 MG PO SCH (11:01)
[2019-08-01] MEDS: CMC:Nebivolol TAB (NF) 2.5 MG TAB PO SCH (11:02)
[2019-08-01] MEDS: Hydrochlorothiazide TAB* 25 MG PO SCH (11:05)
[2019-08-01] MEDS: Vitamin THERAPEUTIC TAB PO SCH (11:06)
[2019-08-01] MEDS: Valsartan TAB* 160 MG PO SCH (11:06)
[2019-08-01] MEDS: Docusate CAP* 100 MG PO SCH (11:09)
[2019-08-01] MEDS: Magnesium Hydroxide LIQ* 30 ML UDC PO SCH (11:09)
--- NOTE | 2019-08-01 11:48 | DS ---
Orthopedic Discharge Summary - Discharge Summary Date of Admission:07/29/19 Date of Discharge: 08/01/19 Date of Surgery: 07/26/19 Attending Orthopedic Provider: Dr Resendiz Pre-operative Diagnosis: Left knee osteoarthritis Operative Procedure: left total knee replacement Disposition of Patient: formerly [facility] Condition of Patient: stable History: ISAIAS MCMAHON is a 78 year old F who had a left knee replacement , she was discharged to home with nursing and PT services on 07/28 She came back to the hospital 07/29 with inability to care for herself at home, events surrounding which included pharmacy being closed and unable to get pain meds as well as power outage which result in cryo cuff not working. Hospital Course: ISAIAS was admitted to [facility] on 07/29/19 seeking placement in a rehab facility. Knee exam incision CDI, NVI distally. Placement at [facility] on 08/01 Home Medications Medication Instructions Recorded Confirmed Type Valsartan/HCTZ 160/25(NF) [Diovan 1 tab PO QAM 04/13/13 07/29/19 History Hct 160/25(NF)] Tylenol 325 mg PO Q4H PRN 12/19/14 07/29/19 History Amlodipine Besylate [Norvasc] 10 mg PO QAM 07/16/19 07/29/19 History Levothyroxine TAB* [Synthroid 100 100 mcg PO QAM 07/16/19 07/29/19 History MCG TAB*] Nebivolol HCl [Bystolic] 20 mg PO QAM 07/16/19 07/29/19 History Potassium 198 mg PO QAM 07/16/19 07/29/19 History Apixaban* [Eliquis*] 2.5 mg PO BID tab 07/28/19 07/29/19 Rx oxyCODONE/Acetamin 5/325 MG* 1 tab PO Q4H PRN tab 07/28/19 07/29/19 Rx [Percocet 5/325 TAB*] oxyCODONE/Acetamin 5/325 MG* 2 tab PO Q4H PRN tab 07/28/19 07/29/19 Rx [Percocet 5/325 TAB*] Acetaminophen TAB* [Tylenol TAB*] 975 mg PO Q8HR tab 08/01/19 Rx Docusate CAP* [Colace Cap*] 100 mg PO BID cap 08/01/19 Rx Discharge Instructions following Orthopedic Surgery: Activity: * Weight Bearing as tolerated * Continue physical therapy and occupational therapy exercises as shown * PT at [facility] Wound care: * OK to shower on post-op day 3, no bathing, swimming, or submerging wound. * Use gentle soap, pat dry. Cover with gauze, SARAH wrap or tape. * [facility] nurse to do wound checks. Call Orthopedic office for: * Increased drainage * Redness * Increased pain * Fever Go to ER with shortness of breath or chest pain. Diet: * Regular diet * Increase fluids and fiber to prevent constipation. * Continue to use stool softeners, call office if no bowel motion within 48 hours. Medications See Home Medication List in your packet for medications that you should take after discharge. DVT Prophylaxis: Eliquis Dosin.5 mg, 1 tab every 12 hours x 30 days post op. Increases bleeding tendency Pain Control: Percocet Dosin/325 mg 1-2 tabs by mouth every 4-6 hours as needed for pain. Maximum of 10 tabs per day. Please note that Percocet contains Tylenol (acetaminophen). Maximum daily dose of Tylenol is 4000 mg from all sources. Antibiotics are required prior to any dental work. FOLLOW UP: Follow up with [Martín] Within 10-14 days, call for appointment Please call our office with any questions or concerns ([phone]) RX sent at previous admission, no RX needed today
[2019-08-01 11:51] VITALS: BP 149/70
--- NOTE | 2019-08-01 12:32 | PN ---
Progress Note - Progress Note Date of Service: 08/01/19 Note: Pt seen at bedside she feels well and denies CP, SOB, dizziness, nausea, abd pain. Knee pain is well controlled. Has a bed at [facility] today. She is up and walking with stand by assist with her walker. Dressing CDI. At [facility] remain WBAT, cont PT, daily dry sterile dressing change, may shower but do not submerge wound, Eliquis 2.5 mg po BID x 30 days post op DC to [facility]
--- NOTE | 2019-08-08 16:28 | HP ---
ADMISSION HISTORY AND PHYSICAL: DATE OF ADMISSION: 07/29/19 ATTENDING PROVIDER: Dr. Resendiz * (DICTATED BY TJ RENEE) HISTORY OF PRESENT ILLNESS: This is a 78-year-old female who had a left knee replacement performed by Dr. Resendiz on 07/26/19. She was discharged home with nursing and physical therapy services on 07/28/19. She returned to the hospital via emergency room on 07/29/19 with inability to care for herself at home. She was re-admitted to orthopedic service. PAST MEDICAL HISTORY: 1. Hypothyroidism. 2. Hypertension. 3. Hypercholesterolemia. 4. Sleep apnea. 5. Stress incontinence. PAST SURGICAL HISTORY: 1. Left total knee arthroplasty. 2. Tonsillectomy/adenoidectomy. 3. Breast biopsy on the right x3. 4. Total thyroidectomy. 5. Mass removal from cervix. 6. D and C. MEDICATIONS: 1. Levothyroxine sodium 100 mcg 1 tab daily. 2. Bystolic 20 mg 1 tab daily. 3. Valsartan/hydrochlorothiazide 160/25 one tab daily. 4. Amlodipine besylate 10 mg daily. 5. Potassium 99 mg 2 tabs daily. 6. Centrum silver daily. 7. Triamcinolone acetonide. 8. Tacrolimus 0.03%, use on affected area twice daily as needed. 9. Clobetasol propionate 0.05% daily. 10. Percocet 5/325 one to two tabs q.4 to 6 hours p.r.n. pain. 11. Eliquis 2.5 mg b.i.d. 12. Docusate cap 100 mg p.o. b.i.d. p.r.n. constipation. ALLERGIES: No known drug allergies. SOCIAL HISTORY: The patient lives with her . She denies any drinking, smoking, or drug use. REVIEW OF SYSTEMS: General: Denies fevers, chills, or night sweats. No known anesthesia problems. HEENT: Denies headache, lightheadedness, or syncopal episodes. Cardiothoracic: Denies chest pain, heart palpitations, or edema. Pulmonary: Denies any shortness of breath with exertion, chronic cough. GI: Denies nausea, vomiting, diarrhea, constipation, or GERD. : Denies nocturia , urinary frequency, urgency, history of UTIs, or kidney problems. Musculoskeletal: Complains of postoperative discomfort in left knee. Denies calf pain. Denies any lower extremity numbness or tingling. Neurological: Denies paresthesias, numbness, seizure, stroke, epilepsy, depression, or anxiety. Integumentary: Denies any abrasions, lesions, rashes, lumps, or open sores. PHYSICAL EXAMINATION GENERAL: Alert and oriented x3, in no acute distress, appropriate mood and affect. HEENT: Normocephalic and atraumatic. Hearing and vision grossly intact. PULMONARY: Lungs are clear to auscultation bilaterally. No wheezes, rales, or rhonchi. CARDIOVASCULAR: Regular rate and rhythm. Normal S1 and S2. No appreciable S3 or S4. No murmurs appreciated. No edema. MUSCULOSKELETAL/NEUROLOGIC: Inspection of the left knee reveals a well-healing surgical incision. Skin edges are well approximated. Sutures in place. There is no erythema. There is mild swelling about the knee. Calf is soft and nontender. Skin is warm, dry, and intact. Gross motor and neurovascular function intact distally. IMPRESSION: Status post left total knee arthroplasty with inability to care for herself at home. PLAN/RECOMMENDATIONS: The patient will be readmitted to Dr. Resendiz's service with plans for discharge to [facility] facility, after which she will follow up with Dr. Resendiz in approximately 14 days for suture removal. She will continue with Percocet for pain management and Eliquis 2.5 mg b.i.d. for DVT prophylaxis. TJ RENEE [id number]/[facility] #: [id number] RAHUL
--- NOTE | 2019-08-13 18:46 | HP ---
HISTORY AND PHYSICAL: ADDENDUM: PHYSICAL EXAMINATION VITAL SIGNS: Height 5 feet 7 inches, weight 230 pounds. Pulse rate 69, blood pressure 130/74, temperature 97.9 degrees Fahrenheit. NEUROLOGIC/MENTAL STATUS: Alert and oriented x3, in no acute distress. Appropriate mood and affect. TJ RENEE [id number]/[facility] #: [id number] [facility] CENTERCourtney
== END 2019-08-01 15:25 | DRG 561 ==
LOC: ED 14:49 → MED 15:45 → OBSVTOIN 07-31 15:40
PROVIDERS: ADMIT Hospitalist; ATTEND Orthopaedic Surgery Adult Reconstructive Orthopaedic Surgery
DX: Z47.1 Aftercare following joint replacement surgery (principal); Z96.652 Presence of left artificial knee joint; M25.562 Pain in left knee; E11.9 Type 2 diabetes mellitus without complications; G47.30 Sleep apnea, unspecified; I10 Essential (primary) hypertension; Z74.2 Need for assistance at home and no other household member able to render care; E78.00 Pure hypercholesterolemia, unspecified; H26.9 Unspecified cataract; N39.3 Stress incontinence (female) (male); E89.0 Postprocedural hypothyroidism; R11.0 Nausea; Z85.850 Personal history of malignant neoplasm of thyroid; Z87.891 Personal history of nicotine dependence; Z92.3 Personal history of irradiation; Z86.19 Personal history of other infectious and parasitic diseases
CPT/HCPCS: 36415; 80048; 80053; 83605; 85014; 85018; 85025; 85049; 85610; 86140; 93005; 94660; 96361; 96374; 99284; A9270-GY; G0378; G8978-GP-CJ; G8979-GP-CH; J2405